=== PATIENT | female | born 1950 | race Caucasian/White ===

== ENCOUNTER → 2016-07-20 | Outpatient (CLI) | payer OTHER ==
[~2016-07-20] MED LIST: ATEN-175 PO; CIPR-255 PO; CYCL10TA6 PO; HYDR-5688 PO; METR-162 PO; ONDA4TAB10 SL; OXYC1TAB3 PO; PRLSR20 PO; TRAM-10 PO
== END | disposition home or self-care (01) ==
LOC: C.MAMM 14:30
PROVIDERS: ATTEND Family Medicine
DX: M81.0 Age-related osteoporosis without current pathological fracture (principal); M85.89 Other specified disorders of bone density and structure, multiple sites

== ENCOUNTER 2016-08-31 12:12 | Emergency (ER) | payer OTHER ==
[~2016-08-31] VITALS: Ht 152.4 cm; Wt 69.3 kg
[~2016-08-31 12:12] MED LIST changes: -CIPR-255 PO; -CYCL10TA6 PO; -HYDR-5688 PO; -METR-162 PO; -ONDA4TAB10 SL
[2016-08-31 12:16] VITALS: TEMP 36.8; Ht 152.4 cm; Wt 69.3 kg
[2016-08-31] MEDS ORDERED: METOCLOPRAMIDE HCL INJ 5 MG/ML 2 ML VIAL IV STA (12:38)
[2016-08-31] MEDS ORDERED: DiphenhydrAMINE HCL 50 MG/ML VIAL IV STA (12:38)
[2016-08-31] MEDS ORDERED: DEXAMETHASONE SOD INJ 10 MG/ML VIAL IV ONE (12:45)
[2016-08-31 13:15] LABS: PARTIAL THROMBOPLASTIN RATIO 1.1; PROTHROMBIN TIME (PATIENT) 10.9 SECONDS (9.0-12.0)
--- NOTE | 2016-08-31 13:17 | DIAGNOSTIC IMAGING REPORT ---
HEAD CT NONCONTRAST CT DOSE: 537.48 mGy.cm HISTORY: Severe headache. TECHNIQUE: Multiaxial CT images of the head were performed without the use of intravenous contrast. Automated exposure control was utilized for this study. Comparison: Head CT 05/09/2008. Findings: The paranasal sinuses and mastoid air cells are clear. The calvarium and skull base are intact. The ventricles and sulci are within normal limits. There is no mass, hematoma, midline shift, or acute infarct. Impression: No acute intracranial abnormality. Electronically signed by: David Prasad M.D. 08/31/2016 1:15 PM Dictated Date/Time: 08/31/2016 1:12 PM
[2016-08-31 13:19] LABS: BASO % 0.3 %; BASO ABS # 0.02 K/uL (0-0.2); COMPLETE YES; EOS % 1.8 %; IG% 0.2 %; LYMPH % 31.4 %; LYMPH ABS # 2.05 K/uL (1.2-3.4); MEAN CELL VOLUME 82.8 fL (80-100); MEAN CORPUSCULAR HEMOGLOBIN 29.8 pg (25-34); MEAN PLATELET VOLUME 8.6 fL (7.4-10.4); NEUT % 58.3 %; PLATELET COUNT 271 K/uL (130-400); RED BLOOD COUNT 5.07 M/uL (4.2-5.4); WHITE BLOOD COUNT 6.53 K/uL (4.8-10.8)
[2016-08-31 13:26] LABS: BUN/CREATININE RATIO 11.8 (10-20); CALCIUM 9.3 mg/dl (8.5-10.1); CREATININE 0.92 mg/dl (0.60-1.20); POTASSIUM 4.4 mmol/L (3.5-5.1)
--- NOTE | 2016-08-31 14:17 | EMERGENCY ROOM VISIT NOTE ---
ED Visit Note First contact with patient: 12:32 I did evaluate and examine this patient myself. I did guide management for the patient. I agree with the PA's assessment as discussed. Please see the PAs dictation for further details. I did independently review the CT scan and blood work. 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 CT scan does not show any evidence of bleed.
--- NOTE | 2016-08-31 16:12 | DIAGNOSTIC IMAGING REPORT ---
Brain MRA HISTORY: Aneurysm eval for aneurysm TECHNIQUE: 3-D [id number] MRA of the brain was performed without contrast. COMPARISON STUDY: None. FINDINGS: Visualized intracranial internal carotid arteries, distal vertebral arteries, and basilar artery are widely patent. There is no significant stenosis, occlusion, or aneurysm seen within the bilateral ACAs, MCAs, or environmental maintenance worker. IMPRESSION: No significant stenosis, occlusion, or aneurysm within the [place] of [place]. Electronically signed by: Bebo Adam M.D. 08/31/2016 4:10 PM Dictated Date/Time: 08/31/2016 4:07 PM
[2016-08-31] MEDS ORDERED: GADAVIST IV PRN (16:45)
--- NOTE | 2016-08-31 16:45 | DIAGNOSTIC IMAGING REPORT ---
NECK MRA HISTORY: Mental status change. eval for aneurysm TECHNIQUE: [id number] and gadolinium-enhanced MRA of the neck was performed both before and after the intravenous administration of contrast. All measurements were calculated based on NASCET criteria. COMPARISON STUDY: None. FINDINGS: The aortic arch and proximal great vessels are widely patent. There is no significant stenosis, occlusion, or dissection identified within the bilateral common carotid, internal carotid, or vertebral arteries. Mild scattered plaque dimension bilaterally. No significant stenotic process. IMPRESSION: No significant stenosis, occlusion, or dissection identified within the carotid or vertebral arteries. Mild scattered plaque formation of both carotid systems. Electronically signed by: Bebo Adam M.D. 08/31/2016 4:43 PM Dictated Date/Time: 08/31/2016 4:42 PM
--- NOTE | 2016-08-31 16:49 | DIAGNOSTIC IMAGING REPORT ---
MRI OF THE BRAIN WITHOUT AND WITH IV CONTRAST CLINICAL HISTORY: Severe headache. History of Shahana Danlos COMPARISON STUDY: Head CT May 09, 2008 and August 31, 2016. TECHNIQUE: Utilizing a 1.5 Adelita magnet and dedicated coil, multiplanar, multiecho imaging of the brain was performed pre and postcontrast administration. IV administration of 7 mL of Gadavist contrast was uneventful. FINDINGS: This exam is mildly compromised by motion artifact. There are no areas restricted diffusion. No acute intracranial hemorrhage, midline shift or mass effect is present. There is no intracranial mass or pathologic enhancement. Mild ventricular dilatation is similar to head CT of May 09, 2008. A few small white matter T2 hyperintense foci suggest minimal small vessel disease. Calvarial signal is maintained. Orbits and sinuses are unremarkable. There is no fluid within the mastoid air cells. IMPRESSION: 1. No acute intracranial findings. 2. No intracranial mass or pathologic enhancement. 3. Mild small vessel disease. Electronically signed by: Jose Tapia M.D. 08/31/2016 4:47 PM Dictated Date/Time: 08/31/2016 4:43 PM
[2016-08-31 17:04] VITALS: BP 152/87; PULSE 117; O2SAT 91
--- NOTE | 2016-08-31 17:05 | EMERGENCY ROOM VISIT NOTE ---
History First contact with patient: 12:32 Chief Complaint: HEAD PAIN Stated Complaint: HEAD PAIN History of Present Illness The patient is a 65 year old female who presents to the Emergency Room with complaints of severe headache to the right orbital region described as throbbing , ranging in severity 8 out of 10 since 9:30 this morning. Patient has Ehler Danlos syndrome and follows with vascular Dr. Jhon Barr. Patient has had multiple aneurysms in the past that had ruptured. No known brain aneurysms. Patient was sent in by the family care doctor. Nothing makes the pain better or worse. Patient denies numbness, tingling, localized weakness, fever, chills, cough, congestion, vision problems, chest pain, dyspnea, abdominal pain, diaphoresis. She is tolerated by mouth fluids and food. No history of migraines. Review of Systems See HPI for pertinent positives & negatives. A total of 10 systems reviewed and were otherwise negative. 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 (3) Hypertension Nos (4) Rupture of kidney (5) Rupture of ovary (6) Splenic Artery Aneurysm Family History Cancer Diabetes mellitus Hypertension Social History Smoking Status: Never Smoker Alcohol Use: none Drug Use: none Marital Status: Housing Status: lives with family Occupation Status: employed Current/Historical Medications Scheduled Atenolol (Tenormin), 100 MG PO HS Scheduled PRN Tramadol (Ultram), 50 MG PO TID PRN for Pain Allergies Coded Allergies: Sodium Benzoate (Verified Allergy, Unknown, unk, 08/31/16) Physical Exam Vital Signs Date Time Temp Pulse Resp B/P Pulse Ox O2 Delivery O2 Flow Rate FiO2 08/31/16 15:30 63 16 132/86 98 Room Air 08/31/16 13:16 66 08/31/16 13:15 68 17 117/71 97 Room Air 08/31/16 12:16 36.8 74 18 126/83 96 Room Air Pain Rating (0-10): 8.0 Physical Exam VITALS: Vitals are noted on the nurse's note and reviewed by myself. Vital signs stable. GENERAL: Pleasant female, in no acute distress, nondiaphoretic, well-developed well-nourished. SKIN: The skin was without rashes, erythema, edema, or bruising. There is no tenting of the skin. Capillary reflex less than 2 seconds. HEAD: Normocephalic atraumatic. EARS: External auditory canals clear, tympanic membranes pearly rodriguez without erythema or effusion bilaterally. EYES: Pupils equal round and reactive to light and accommodation. Conjunctivae without injection, sclerae without icterus. Extraocular movements intact. NOSE: Patent, turbinates without inflammation or discharge. No sinus tenderness. MOUTH: Mucous membranes moist. Pharynx without erythema or exudate. Uvula midline. Airway patent. Tongue does not deviate. NECK: Supple without nuchal rigidity. No lymphadenopathy. No thyromegaly. Cervical spine is nontender. No JVD. HEART: Regular rate and rhythm without murmurs gallops or rubs. LUNGS: Clear to auscultation bilaterally without wheezes, rales or rhonchi. No dullness to percussion. No retractions or accessory muscle use. ABDOMEN: Positive bowel sounds x 4. Normal tympanic percussion. Soft, nontender, without masses or organomegaly. Benitez sign negative. No guarding or rebound tenderness. MUSCULOSKELETAL: No muscle atrophy, erythema, or edema noted. NEURO: Patient was alert and oriented to person place and time. Normal sensation to light and sharp touch. No focal neurological deficits. Cranial nerves II through XII grossly intact. No pronator drift. Cerebellar exam intact. Medical Decision & Procedures Laboratory Results 08/31/16 12:52 Red Blood Count 5.07, Mean Corpuscular Volume 82.8, Mean Corpuscular Hemoglobin 29.8, Mean Corpuscular Hemoglobin Concent 36.0, Mean Platelet Volume 8.6, Neutrophils (%) (Auto) 58.3, Lymphocytes (%) (Auto) 31.4, Monocytes (%) (Auto) 8.0, Eosinophils (%) (Auto) 1.8, Basophils (%) (Auto) 0.3, Neutrophils # (Auto) 3.81, Lymphocytes # (Auto) 2.05, Monocytes # (Auto) 0.52, Eosinophils # (Auto) 0.12, Basophils # (Auto) 0.02 08/31/16 12:52 Test 08/31/16 12:52 White Blood Count 6.53 K/uL (4.8-10.8) Red Blood Count 5.07 M/uL (4.2-5.4) Hemoglobin 15.1 g/dL (12.0-16.0) Hematocrit 42.0 % (37-47) Mean Corpuscular Volume 82.8 fL (80-100) Mean Corpuscular Hemoglobin 29.8 pg (25-34) Mean Corpuscular Hemoglobin Concent 36.0 g/dl (32-36) Platelet Count 271 K/uL (130-400) Mean Platelet Volume 8.6 fL (7.4-10.4) Neutrophils (%) (Auto) 58.3 % Lymphocytes (%) (Auto) 31.4 % Monocytes (%) (Auto) 8.0 % Eosinophils (%) (Auto) 1.8 % Basophils (%) (Auto) 0.3 % Neutrophils # (Auto) 3.81 K/uL (1.4-6.5) Lymphocytes # (Auto) 2.05 K/uL (1.2-3.4) Monocytes # (Auto) 0.52 K/uL (0.11-0.59) Eosinophils # (Auto) 0.12 K/uL (0-0.5) Basophils # (Auto) 0.02 K/uL (0-0.2) RDW Standard Deviation 39.1 fL (36.4-46.3) RDW Coefficient of Variation 13.0 % (11.5-14.5) Immature Granulocyte % (Auto) 0.2 % Immature Granulocyte # (Auto) 0.01 K/uL (0.00-0.02) Prothrombin Time 10.9 SECONDS (9.0-12.0) Prothromb Time International Ratio 1.0 (0.9-1.1) Activated Partial Thromboplast Time 29.3 SECONDS (21.0-31.0) Partial Thromboplastin Ratio 1.1 Anion Gap 6.0 mmol/L (3-11) Est Creatinine Clear Calc Drug Dose 53.7 ml/min Estimated GFR () 76.3 Estimated GFR (Non- 65.8 BUN/Creatinine Ratio 11.8 (10-20) Calcium Level 9.3 mg/dl (8.5-10.1) ED Course Prior records/ancillary studies reviewed. Triage Nursing notes reviewed. The patient's history was concerning for headache. Differential diagnosis: Etiologies such as migraine headache, meningitis, sinusitis, CO exposure, ICH, SAH, infection, tumor, headache, sinus thrombosis, arterial dissection, as well as others were entertained. Physical examination findings: As above. Non-focal. ER treatment provided: Reglan, Benadryl, IV fluids On reassessment the patient felt better. Diagnostics interpreted by me: The labs revealed no worrisome leukocytosis or electrolyte abnormality Imaging studies: MRI OF THE BRAIN WITHOUT AND WITH IV CONTRAST CLINICAL HISTORY: Severe headache. History of Shahana Danlos COMPARISON STUDY: Head CT May 09, 2008 and August 31, 2016. TECHNIQUE: Utilizing a 1.5 Adelita magnet and dedicated coil, multiplanar, multiecho imaging of the brain was performed pre and postcontrast administration. IV administration of 7 mL of Gadavist contrast was uneventful. FINDINGS: This exam is mildly compromised by motion artifact. There are no areas restricted diffusion. No acute intracranial hemorrhage, midline shift or mass effect is present. There is no intracranial mass or pathologic enhancement. Mild ventricular dilatation is similar to head CT of May 09, 2008. A few small white matter T2 hyperintense foci suggest minimal small vessel disease. Calvarial signal is maintained. Orbits and sinuses are unremarkable. There is no fluid within the mastoid air cells. IMPRESSION: 1. No acute intracranial findings. 2. No intracranial mass or pathologic enhancement. 3. Mild small vessel disease. Electronically signed by: Jose Tapia M.D. 08/31/2016 4:[address] CT DOSE: 537.48 mGy.cm HISTORY: Severe headache. TECHNIQUE: Multiaxial CT images of the head were performed without the use of intravenous contrast. Automated exposure control was utilized for this study. Comparison: Head CT 05/09/2008. Findings: The paranasal sinuses and mastoid air cells are clear. The calvarium and skull base are intact. The ventricles and sulci are within normal limits. There is no mass, hematoma, midline shift, or acute infarct. Impression: No acute intracranial abnormality. Electronically signed by: David Prasad M.D. This appears to be consistent with headache that could be allergy related. Patient states she's been suffering from allergies past few days. Patient was offered a lumbar puncture for rule out intracranial bleed and adamantly declined. She is requesting to leave. I felt this is reasonable. She understands the risks involved such as intracranial bleed, infection and/or . Patient was neurovascularly and neurologically intact. She is well- appearing. Unremarkable workup as above. She is advised to follow-up with her family care doctor in a few days or here in the ER sooner for headache, fevers, confusion, worsening signs or symptoms or as needed. By the evaluation outlined above emergent etiologies such as meningitis, sinusitis, CO exposure, ICH, SAH, infection, temporal arteritis, tumor, sinus thrombosis, arterial dissection, as well as others were deemed relatively unlikely. The pt informed about the findings as listed above. All questions were answered and pleased with the treatment. Return instructions were outlined and the patient was discharged in stable condition. Referral: The patient was referred back to their primary care physician for follow-up in 2 to 3 days for a recheck of the current condition. Case reviewed with my attending Medical Decision as above Impression Primary Impression: Headache Departure Information Dispostion Home / Self-Care Condition GOOD Referrals Nora Louis M.D. (PCP) Patient Instructions My [facility] [place] [employer] Additional Instructions DO NOT drive, drink alcohol, operate machinery, or perform dangerous activities today. You were given medications in the ER that can affect your ability to safely function or operate a vehicle. Rest today in a quiet, peaceful, dark environment and get a full 8-10 hrs of sleep tonight. Avoid loud noises, smoke/smoking, alcohol, bright lights, stress, or physical exertion today to minimize the chance the headache may return. Continue current medications. Acetaminophen(Tylenol) may be used for fever or pain. Use 1000mg every six hours as needed. Avoid using more than 3000mg in a 24 hour period. Return to the ER for passing out, worsening headache, vision problems, neck stiffness/pain, fevers, vomiting, worsening of your condition, or as needed. Follow up with your primary physician and/or a neurologist in 2-3 days for a recheck of your current condition. Problem Qualifiers Primary Impression: Headache Headache type: unspecified Headache chronicity pattern: acute headache Intractability: not intractable Qualified Codes: R51 - Headache
== END 2016-08-31 17:06 | disposition home or self-care (01) ==
LOC: C.EDB 12:13 → C.EDC 17:06
DX: R51 Headache (principal); Q79.6 Ehlers-Danlos syndromes; I10 Essential (primary) hypertension; Z80.9 Family history of malignant neoplasm, unspecified; Z83.3 Family history of diabetes mellitus; Z82.49 Family history of ischemic heart disease and other diseases of the circulatory system; Z79.899 Other long term (current) drug therapy; I65.23 Occlusion and stenosis of bilateral carotid arteries

== ENCOUNTER 2016-09-07 11:18 | Emergency (ER) | payer OTHER ==
[~2016-09-07] VITALS: Ht 152.4 cm; Wt 68.2 kg
[~2016-09-07 11:18] MED LIST changes: -OXYC1TAB3 PO; -PRLSR20 PO
[2016-09-07 11:27] VITALS: TEMP 36.8; Ht 152.4 cm; Wt 68.2 kg
[2016-09-07] MEDS ORDERED: SODIUM CHLORIDE 0.9% 1000ML 1,000 ML IV STA (12:08)
[2016-09-07] MEDS ORDERED: HYDROmorphone INJ 1 MG/ML SYR IV STA (12:08)
--- NOTE | 2016-09-07 12:12 | EMERGENCY ROOM VISIT NOTE ---
History Report prepared by Miguel: Tova Johnson Under the Supervision of: Dr. Idris Rowe M.D. First contact with patient: 11:59 Chief Complaint: HIP PAIN Stated Complaint: ABDOMINAL PAIN History of Present Illness The patient is a 65 year old female who presents to the Emergency Room with complaints of persistent right hip pain that began three days ago. She currently rates her discomfort as a 10/10 in severity. The patient states that she was recently evaluated in the emergency department for a head pain, noting that she had an MRI. The patient states that she was discharged and then developed the right hip pain. She notes a history of a ruptured right kidney, noting that she had a right nephrectomy. The patient denies any history of an appendectomy. She describes her pain as a spasm and sharp pain. The patient states that she takes Tramadol daily, but denies any relief of her symptoms. She states that her pain today feels similar to a kidney stone. The patient notes a history of an abdominal aneurysm. Source of History: patient Onset: three days ago Position: other (right hip) Symptom Intensity: 10/10 Quality: sharp, other (spasm) Timing: other (persistent) Review of Systems See HPI for pertinent positives & negatives. A total of 10 systems reviewed and were otherwise negative. 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 (3) Hypertension Nos (4) Rupture of kidney (5) Rupture of ovary (6) Splenic Artery Aneurysm Family History Cancer Diabetes mellitus Hypertension Social History Smoking Status: Never Smoker Alcohol Use: none Drug Use: none Marital Status: Housing Status: lives with family Occupation Status: employed Current/Historical Medications Scheduled Atenolol (Tenormin), 100 MG PO HS Scheduled PRN Cyclobenzaprine Hcl (Flexeril), 10 MG PO TID PRN for Muscle Spasms Oxycodone Immediate Rel Tab (Roxicodone Ir), 1-2 TAB PO Q4H PRN for Severe Pain Tramadol (Ultram), 50 MG PO TID PRN for Pain Allergies Coded Allergies: Sodium Benzoate (Verified Allergy, Unknown, unk, 08/31/16) Physical Exam Vital Signs Date Time Temp Pulse Resp B/P Pulse Ox O2 Delivery O2 Flow Rate FiO2 09/07/16 15:07 73 18 133/78 100 09/07/16 13:05 73 18 128/72 96 Room Air 09/07/16 11:27 36.8 85 20 138/81 96 Room Air Physical Exam GENERAL: Patient is uncomfortable appearing and in moderate distress. HEENT: No acute trauma, normocephalic atraumatic, mucous membranes moist, no nasal congestion, no scleral icterus. NECK: No stridor, no adenopathy, no meningismus, trachea is midline. LUNGS: No dyspnea. Clear to auscultation and equal bilaterally. No wheeze, no rhonchi. HEART: Regular rate and rhythm. No murmurs, rubs, gallops appreciated. ABDOMEN: Very tender over right lower quadrant. Soft, bowel sounds positive, no masses appreciated, no peritonitis. BACK: No midline tenderness, no CVA tenderness EXTREMITIES: Normal motion all extremities, no cyanosis, no edema. NEUROLOGIC: Alert and oriented, no acute motor or sensory deficits, no focal weakness, cranial nerves grossly intact. SKIN: No rash, no jaundice, no diaphoresis. Medical Decision & Procedures ER Provider Diagnostic Interpretation: Radiology results and stated below per my review and radiologist interpretation: CT SCAN OF THE ABDOMEN AND PELVIS WITH IV CONTRAST CLINICAL HISTORY: Right lower quadrant abdominal pain COMPARISON STUDY: Abdominal CT dated 04/22/2016 and 02/25/2015. TECHNIQUE: Following the IV administration of 50 cc of Optiray 320, CT scan of the abdomen and pelvis is performed from the lung bases to the proximal femora. Images are reviewed in the axial, sagittal, and coronal planes. IV contrast was administered without complication. Low dose was used due to solitary kidney. Automated dose control exposure was utilized. CT DOSE: 366.44 mGy.cm FINDINGS: Lung bases: The heart is enlarged and there is trace pericardial effusion. No airspace consolidation or pleural effusion is seen. There is a small to moderate hiatal hernia. Liver: The contrast-enhanced liver is normal in size, contour, and attenuation. There is mild to moderate central intrahepatic biliary ductal dilatation, similar to previous. The hepatic veins and portal veins are patent. Calcifications are noted in the right hepatic lobe. Gallbladder: Surgically absent noting clips in the gallbladder fossa. Spleen: Normal in size and attenuation. There are at least 2 peripherally calcified splenic artery aneurysms measuring up to 1.6 cm. These are similar in appearance to prior studies. Pancreas: Moderately atrophic. Adrenal glands: Unremarkable. Kidneys: The right kidney is surgically absent. The contrast-enhanced left kidney is normal in size and without hydronephrosis. Parapelvic cysts are noted. The left kidney enhances homogeneously. 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 A 1.4 cm aneurysm is again seen at the renal hilum. This is unchanged from previous. Abdominal vasculature: The abdominal aorta is normal in course and caliber noting moderate atherosclerotic calcification. 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 Bowel: There is no bowel obstruction. There is mild colonic diverticulosis without CT evidence of acute diverticulitis. The appendix is well-visualized and normal. Peritoneum: There is no intraperitoneal free air or abdominal ascites. There is a fat-containing umbilical hernia. Lymphadenopathy: None. Pelvic viscera: The bladder, uterus, and adnexa are normal as imaged. Trace free fluid is seen in the cul-de-sac. Skeletal structures: The skeletal structures are osteopenic. There is mild/moderate lumbosacral spondylosis. No lytic or blastic lesions are seen. IMPRESSION: 1. There are no acute infectious or inflammatory findings in the abdomen or pelvis. 2. There is trace free fluid in the cul-de-sac. 3. Aneurysms of the left renal, celiac, superior mesenteric, and splenic arteries are unchanged dating back to 02/25/2015. 4. Status post right nephrectomy and cholecystectomy. 5. Cardiomegaly. An hiatal hernia. 6. Mild colonic diverticulosis without CT evidence of acute diverticulitis. 7. Additional findings as above. Electronically signed by: Kevin Solomon M.D. 09/07/2016 1:08 PM Dictated Date/Time: 09/07/2016 1:02 PM The status of this report is Signed. Draft = Not yet reviewed or approved by Radiologist. Signed = Reviewed and approved by Radiologist. Laboratory Results 09/07/16 11:40 Red Blood Count 5.00, Mean Corpuscular Volume 84.6, Mean Corpuscular Hemoglobin 29.6, Mean Corpuscular Hemoglobin Concent 35.0, Mean Platelet Volume 8.8, Neutrophils (%) (Auto) 49.7, Lymphocytes (%) (Auto) 39.0, Monocytes (%) (Auto) 7.9, Eosinophils (%) (Auto) 2.9, Basophils (%) (Auto) 0.5, Neutrophils # (Auto) 2.08, Lymphocytes # (Auto) 1.63, Monocytes # (Auto) 0.33, Eosinophils # (Auto) 0.12, Basophils # (Auto) 0.02 09/07/16 11:40 Test 09/07/16 11:30 09/07/16 11:40 Urine Color YELLOW Urine Appearance CLEAR (CLEAR) Urine pH 8.0 (4.5-7.5) Urine Specific [place] 1.004 (1.000-1.030) Urine Protein NEG (NEG) Urine Glucose (UA) NEG (NEG) Urine Ketones NEG (NEG) Urine Occult Blood NEG (NEG) Urine Nitrite NEG (NEG) Urine Bilirubin NEG (NEG) Urine Urobilinogen NEG (NEG) Urine Leukocyte Esterase NEG (NEG) Urine WBC (Auto) 0 /hpf (0-5) Urine RBC (Auto) 0-4 /hpf (0-4) Urine Hyaline Casts (Auto) 0 /lpf (0-5) Urine Epithelial Cells (Auto) 5-10 /lpf (0-5) Urine Bacteria (Auto) NEG (NEG) White Blood Count 4.18 K/uL (4.8-10.8) Red Blood Count 5.00 M/uL (4.2-5.4) Hemoglobin 14.8 g/dL (12.0-16.0) Hematocrit 42.3 % (37-47) Mean Corpuscular Volume 84.6 fL (80-100) Mean Corpuscular Hemoglobin 29.6 pg (25-34) Mean Corpuscular Hemoglobin Concent 35.0 g/dl (32-36) Platelet Count 248 K/uL (130-400) Mean Platelet Volume 8.8 fL (7.4-10.4) Neutrophils (%) (Auto) 49.7 % Lymphocytes (%) (Auto) 39.0 % Monocytes (%) (Auto) 7.9 % Eosinophils (%) (Auto) 2.9 % Basophils (%) (Auto) 0.5 % Neutrophils # (Auto) 2.08 K/uL (1.4-6.5) Lymphocytes # (Auto) 1.63 K/uL (1.2-3.4) Monocytes # (Auto) 0.33 K/uL (0.11-0.59) Eosinophils # (Auto) 0.12 K/uL (0-0.5) Basophils # (Auto) 0.02 K/uL (0-0.2) RDW Standard Deviation 40.3 fL (36.4-46.3) RDW Coefficient of Variation 13.2 % (11.5-14.5) Immature Granulocyte % (Auto) 0.0 % Immature Granulocyte # (Auto) 0.00 K/uL (0.00-0.02) Anion Gap 7.0 mmol/L (3-11) Est Creatinine Clear Calc Drug Dose 51.0 ml/min Estimated GFR () 72.4 Estimated GFR (Non- 62.5 BUN/Creatinine Ratio 10.7 (10-20) Calcium Level 9.5 mg/dl (8.5-10.1) Total Bilirubin 0.7 mg/dl (0.2-1) Direct Bilirubin 0.1 mg/dl (0-0.2) Aspartate Amino Transf (AST/SGOT) 29 U/L (15-37) Alanine Aminotransferase (ALT/SGPT) 36 U/L (12-78) Alkaline Phosphatase 91 U/L (45-117) Total Protein 7.6 gm/dl (6.4-8.2) Albumin 3.9 gm/dl (3.4-5.0) Lipase 149 U/L (73-393) Laboratory results as reviewed by me. Medications Administered Medications (Trade) Dose Ordered Sig/Delmar Route Start Time Stop Time Status Last Admin Dose Admin Sodium Chloride (Nss 1000ml) 1,000 ml @ 999 mls/hr Q1H1M STAT IV 09/07/16 12:08 09/07/16 13:08 DC 09/07/16 12:18 999 MLS/HR Hydromorphone HCl (Dilaudid Inj) 1 mg NOW STAT IV 09/07/16 12:08 09/07/16 12:10 DC 09/07/16 12:17 1 MG Cyclobenzaprine HCl (Flexeril Tab) 10 mg NOW STAT PO 09/07/16 14:44 09/07/16 14:45 DC 09/07/16 15:02 10 MG ED Course 1201: The patient was evaluated in room C4. A complete history and physical exam was performed. 1208: Ordered Dilaudid Inj 1 mg IV, Sodium Chloride 1000 ml @ 999 mls/hr IV. 1318: I reevaluated the patient and she is still having pain. She refuses to sit down and refuses any more pain medication. She states that she wants to know "when something ruptures." The patient demands that her case is discussed with her vascular surgeon at [facility]. The patient is able to walk around the room without weakness. [address] Favio Ferreira, Vascular Surgery- [facility]. 1338: I reevaluated the patient and she is still out of bed walking around room. 1354: We are unable to contact the patients specialist. 1413: I discussed the patients case with one of Favio Ferreira, Vascular Surgery- [facility] partners. He is going to get in touch with Favio Ferreira. 1420: I discussed the patients case with Favio Ferreira, Vascular Surgery- [facility]. He states that there is nothing more to do for the patient. 1436: I reevaluated the patient and she is still having pain, but would not like pain medications. She requested a muscle relaxer. The patient asked for physical therapy to come see her and she is going to follow up with her PCP. I discussed the exam findings and treatment plan with her and she verbalized complete understanding and agreement. The patient is ready to go home. 1444: Ordered Flexeril Tab 10 mg PO. Medical Decision Differential: Appendicitis, , MSK, Diverticulitis, UTI, Renal Colic, Bowel Obstruction, Aortic Pathology, amongst other pathologies entertained. 65 yr old female arrives with RLQ abdominal pain in to groin. Exam difficult to truly get initially given how upset patient is. Calmed and feeling better with pain meds. She is absolutely convinced she is having intraabdominal bleeding. Pulses intact in legs and neuro normal. No peritonitis nor surgical abdomen. CT done which is unremarkable and does not show any new changes from previous scans. Labs unremarkable. Patient requested I call her surgeon at [facility] and they have noted no further studies to add. Patient stable though still having pain. Refuses further IV pain meds and requesting muscle relaxer. Refuses benzo. Given rx for flexeril and oxy ir. Discussed symptoms to monitor for. As much as patient saying she is unable to ambulate due to pain she has been walking around the room without very much difficulty throughout ED stay. Consults Time Called: 1320 Consulting Physician: Dr. favio Ferreira, Vascular Surgery- [facility] Returned Call: 1420 I discussed the patients case with Favio Ferreira, Vascular Surgery- [facility]. He states that there is nothing more to do for the patient. Impression Primary Impression: Right groin pain Scribe Attestation The scribe's documentation has been prepared under my direction and personally reviewed by me in its entirety. I confirm that the note above accurately reflects all work, treatment, procedures, and medical decision making performed by me. Departure Information Dispostion Home / Self-Care Prescriptions Cyclobenzaprine Hcl (FLEXERIL) 10 Mg Tab 10 MG PO TID Y for Muscle Spasms, #20 TAB Prov: Idris Rowe M.D. 09/07/16 Oxycodone Immediate Rel Tab (ROXICODONE IR) 5 Mg Tab 1-2 TAB PO Q4H Y for Severe Pain, #20 TAB Prov: Idris Rowe M.D. 09/07/16 Referrals Nora Louis M.D. (PCP) Forms HOME CARE DOCUMENTATION FORM, IMPORTANT VISIT INFORMATION Patient Instructions Abdominal Pain - [facility], My [facility] Additional Instructions You have received a narcotic pain medication prescription. These medications may cause drowsiness and should not be used with other sedative medications. Do not drive, drink alcohol, perform dangerous activities, nor make important decisions after taking these medications. intermodal dispatcher use or inappropriate use may lead to addiction.
[2016-09-07 12:16] LABS: BASO % 0.5 %; BASO ABS # 0.02 K/uL (0-0.2); COMPLETE YES; EOS % 2.9 %; HEMATOCRIT 42.3 % (37-47); LYMPH ABS # 1.63 K/uL (1.2-3.4); MEAN CELL VOLUME 84.6 fL (80-100); MEAN CORPUSCULAR HEMOGLOBIN 29.6 pg (25-34); MEAN PLATELET VOLUME 8.8 fL (7.4-10.4); MONO % 7.9 %; NEUT % 49.7 %; PLATELET COUNT 248 K/uL (130-400); WHITE BLOOD COUNT 4.18 K/uL (4.8-10.8)
[2016-09-07 12:25] LABS: BUN/CREATININE RATIO 10.7 (10-20); CALCIUM 9.5 mg/dl (8.5-10.1); CREATININE 0.96 mg/dl (0.60-1.20); POTASSIUM 4.5 mmol/L (3.5-5.1)
[2016-09-07 12:32] LABS: URINE APPEARANCE CLEAR (CLEAR); URINE BILIRUBIN NEG (NEG); URINE COLOR YELLOW; URINE NITRITE NEG (NEG); URINE SPECIFIC GRAVITY 1.004 (1.000-1.030); UROBILINOGEN NEG (NEG); ZZUR CULT IF INDIC CLEAN CATCH NO
[2016-09-07 12:45] LABS: MANUAL MICROSCOPIC REQUIRED? NO; REVIEW REQ? NO
[2016-09-07] MEDS ORDERED: OPTIRAY 320 IV PRN (13:00)
--- NOTE | 2016-09-07 13:10 | DIAGNOSTIC IMAGING REPORT ---
CT SCAN OF THE ABDOMEN AND PELVIS WITH IV CONTRAST CLINICAL HISTORY: Right lower quadrant abdominal pain COMPARISON STUDY: Abdominal CT dated 04/22/2016 and 02/25/2015. TECHNIQUE: Following the IV administration of 50 cc of Optiray 320, CT scan of the abdomen and pelvis is performed from the lung bases to the proximal femora. Images are reviewed in the axial, sagittal, and coronal planes. IV contrast was administered without complication. Low dose was used due to solitary kidney. Automated dose control exposure was utilized. CT DOSE: 366.44 mGy.cm FINDINGS: Lung bases: The heart is enlarged and there is trace pericardial effusion. No airspace consolidation or pleural effusion is seen. There is a small to moderate hiatal hernia. Liver: The contrast-enhanced liver is normal in size, contour, and attenuation. There is mild to moderate central intrahepatic biliary ductal dilatation, similar to previous. The hepatic veins and portal veins are patent. Calcifications are noted in the right hepatic lobe. Gallbladder: Surgically absent noting clips in the gallbladder fossa. Spleen: Normal in size and attenuation. There are at least 2 peripherally calcified splenic artery aneurysms measuring up to 1.6 cm. These are similar in appearance to prior studies. Pancreas: Moderately atrophic. Adrenal glands: Unremarkable. Kidneys: The right kidney is surgically absent. The contrast-enhanced left kidney is normal in size and without hydronephrosis. Parapelvic cysts are noted. The left kidney enhances homogeneously. 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 A 1.4 cm aneurysm is again seen at the renal hilum. This is unchanged from previous. Abdominal vasculature: The abdominal aorta is normal in course and caliber noting moderate atherosclerotic calcification. 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 Bowel: There is no bowel obstruction. There is mild colonic diverticulosis without CT evidence of acute diverticulitis. The appendix is well-visualized and normal. Peritoneum: There is no intraperitoneal free air or abdominal ascites. There is a fat-containing umbilical hernia. Lymphadenopathy: None. Pelvic viscera: The bladder, uterus, and adnexa are normal as imaged. Trace free fluid is seen in the cul-de-sac. Skeletal structures: The skeletal structures are osteopenic. There is mild/moderate lumbosacral spondylosis. No lytic or blastic lesions are seen. IMPRESSION: 1. There are no acute infectious or inflammatory findings in the abdomen or pelvis. 2. There is trace free fluid in the cul-de-sac. 3. Aneurysms of the left renal, celiac, superior mesenteric, and splenic arteries are unchanged dating back to 02/25/2015. 4. Status post right nephrectomy and cholecystectomy. 5. Cardiomegaly. An hiatal hernia. 6. Mild colonic diverticulosis without CT evidence of acute diverticulitis. 7. Additional findings as above. Electronically signed by: Kevin Solomon M.D. 09/07/2016 1:08 PM Dictated Date/Time: 09/07/2016 1:02 PM
[2016-09-07] MEDS ORDERED: CYCLOBENZAPRINE HCL 5 MG TAB PO STA (14:44)
[2016-09-07] MEDS ORDERED: CYCL10TA6 PO (14:47)
[2016-09-07] MEDS ORDERED: OXYC1TAB3 PO (14:47)
[2016-09-07] MEDS ORDERED: CYCLOBENZAPRINE HCL 10 MG TAB ONE (15:04)
[2016-09-07 15:07] VITALS: BP 133/78; PULSE 73; O2SAT 100
== END 2016-09-07 15:08 | disposition home or self-care (01) ==
LOC: EDBD 11:18 → C.EDC 11:19
DX: R10.31 Right lower quadrant pain (principal); I10 Essential (primary) hypertension; Q79.6 Ehlers-Danlos syndromes; I71.4 Abdominal aortic aneurysm, without rupture; Z80.9 Family history of malignant neoplasm, unspecified; Z83.3 Family history of diabetes mellitus; Z82.49 Family history of ischemic heart disease and other diseases of the circulatory system; Z79.899 Other long term (current) drug therapy

== ENCOUNTER 2016-11-10 16:15 | Emergency (ER) | payer OTHER ==
[~2016-11-10] VITALS: Ht 152.4 cm; Wt 69.8 kg
[~2016-11-10 16:15] MED LIST changes: +OXYC1TAB3 PO
[2016-11-10 16:21] VITALS: BP 127/81; PULSE 87; TEMP 36.5; O2SAT 96; Ht 152.4 cm; Wt 69.8 kg
--- NOTE | 2016-11-10 16:47 | DIAGNOSTIC IMAGING REPORT ---
RIGHT FOOT MIN 3 VIEWS ROUTINE CLINICAL HISTORY: R lat foot pain/prox 5th MT Right pain COMPARISON: None. DISCUSSION: Moderate degenerative change first metatarsophalangeal joint. Small heel spur. Minimal ossification Achilles tendon insertion. Subtalar joint appears to be intact. No acute bony abnormality is appreciated. There is no evidence for soft tissue swelling. IMPRESSION: Moderate degenerative change. No acute process. Electronically signed by: Bebo Adam M.D. 11/10/2016 4:46 PM Dictated Date/Time: 11/10/2016 4:45 PM
--- NOTE | 2016-11-10 17:10 | EMERGENCY ROOM VISIT NOTE ---
ED Visit Note First contact with patient: 16:25 I did evaluate and examine this patient myself. I did guide management for the patient. I agree with the APC's assessment as discussed. Please see the APC's dictation for further details. I did independently review the x-rays. There is no evidence of acute fracture. The patient was discharged home with a walking boot. She will follow up with [facility].
--- NOTE | 2016-11-10 20:27 | EMERGENCY ROOM VISIT NOTE ---
History First contact with patient: 16:25 Chief Complaint: FOOT PAIN Stated Complaint: LUMP, CRAMPS, PAIN, RT FOOT History of Present Illness The patient is a 66 year old female who presents to the Emergency Room with complaints of right lateral foot pain. The patient reports that she has had discomfort in the foot for the past week. She denies any known injury to the foot. She does walk extensively with her dog, but denies any sudden onset of pain while working. She also reports a history of Shahana-Danlos syndrome, and is wondering whether her symptoms could be secondary to a neuroma or other soft tissue injury. She was seen by her PCP at the [facility] , and referred here for an x-ray. The patient rates her discomfort a 4 out of 10 with weightbearing. She denies any prior history of right foot injuries or fractures. 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 (3) Hypertension Nos (4) Rupture of kidney (5) Rupture of ovary (6) Splenic Artery Aneurysm Family History Cancer Diabetes mellitus Hypertension Social History Smoking Status: Never Smoker Alcohol Use: none Drug Use: none Marital Status: Housing Status: lives with family Occupation Status: employed Current/Historical Medications Scheduled Atenolol (Tenormin), 100 MG PO HS Scheduled PRN Tramadol (Ultram), 50 MG PO TID PRN for Pain Allergies Coded Allergies: Sodium Benzoate (Verified Allergy, Unknown, unk, 11/10/16) Physical Exam Vital Signs Date Time Temp Pulse Resp B/P (MAP) Pulse Ox O2 Delivery O2 Flow Rate FiO2 11/10/16 16:21 36.5 87 20 127/81 96 Room Air Pain Rating (0-10): 3.0 Physical Exam CONSTITUTIONAL: Healthy and well nourished. Alert and oriented X 3 with positive affect. She does not appear in any acute distress. HEENT: Normocephalic, atraumatic. Pupils equal, round and reactive. NECK: Full active range of motion without discomfort. MUSCULOSKELETAL: Examination of the right foot shows minimal lateral midfoot edema without ecchymosis, erythema or palpable masses. She has general tenderness to palpation over the proximal fifth metatarsal region. The pain is not worsened with flexion or extension of the toes. No focal tenderness to the dorsal midfoot, calcaneus or Achilles tendon. Pedal pulses are intact. INTEGUMENTARY: No rash or other significant dermatologic conditions noted. NEUROLOGIC: Right foot and toes are sensory intact. Medical Decision & Procedures ER Provider Diagnostic Interpretation: My interpretation of right foot x-rays does not show any acute fractures or subluxations. Radiologist report is as follows: RIGHT FOOT MIN 3 VIEWS ROUTINE CLINICAL HISTORY: R lat foot pain/prox 5th MT Right pain COMPARISON: None. DISCUSSION: Moderate degenerative change first metatarsophalangeal joint. Small heel spur. Minimal ossification Achilles tendon insertion. Subtalar joint appears to be intact. No acute bony abnormality is appreciated. There is no evidence for soft tissue swelling. IMPRESSION: Moderate degenerative change. No acute process. ED Course Patient history and physical exam were performed. Nurse's notes were reviewed. Vital signs were also reviewed and normal. The patient refused any analgesics while in the emergency department. Shows of the right foot were normal. The patient reports that she is on her feet all of the time. She refused crutches or a walker. She wanted to know if it was something that I can put on her foot that she can walk. A short fracture boot was applied, and the patient was able to ambulate without difficulty. I did encourage the patient to follow-up with [facility] for further reevaluation. She was encouraged to intermittently apply ice to the foot. Ibuprofen or Tylenol as needed for pain. Patient was happy with plan of care, voiced understanding of all discharge instructions, and rated her pain a 3 out of 10 at the time of discharge. Medical Decision Impression Primary Impression: Right foot pain Departure Information Dispostion Home / Self-Care Condition GOOD Referrals Gianfranco Vasquez MD Forms HOME CARE DOCUMENTATION FORM, IMPORTANT VISIT INFORMATION Patient Instructions My [facility] [employer] Additional Instructions Intermittently apply ice to the foot. Wear fracture boot as needed when up and about. Ibuprofen or Tylenol as needed for pain. Suggest follow-up with [facility] for further reevaluation and management - call for an appointment.
== END 2016-11-10 17:24 | disposition home or self-care (01) ==
LOC: C.EDB 16:17 → C.EDD 17:24
DX: M79.671 Pain in right foot (principal); I10 Essential (primary) hypertension; Q79.6 Ehlers-Danlos syndromes; Z83.3 Family history of diabetes mellitus; Z82.49 Family history of ischemic heart disease and other diseases of the circulatory system

== ENCOUNTER 2016-11-20 03:44 | Emergency (ER) | payer OTHER ==
[~2016-11-20] VITALS: Ht 152.4 cm; Wt 69.9 kg
[~2016-11-20 03:44] MED LIST changes: +LORAZEPAM 2 MG/ML 1 ML VIAL IV STA; -OXYC1TAB3 PO
[2016-11-20] MEDS ORDERED: SODIUM CHLORIDE 0.9% 1000ML 1,000 ML IV ONE (03:45)
[2016-11-20] MEDS ORDERED: OPTIRAY 320 IV PRN (04:00)
[2016-11-20 04:07] VITALS: TEMP 36.8; Ht 152.4 cm; Wt 69.9 kg
[2016-11-20 04:13] LABS: BASO % 0.4 %; BASO ABS # 0.03 K/uL (0-0.2); COMPLETE YES; EOS % 1.4 %; HEMATOCRIT 39.7 % (37-47); IG% 0.2 %; LYMPH ABS # 1.92 K/uL (1.2-3.4); MEAN CELL VOLUME 85.2 fL (80-100); MEAN CORPUSCULAR HEMOGLOBIN 29.6 pg (25-34); MEAN CORPUSCULAR HGB CONC 34.8 g/dl (32-36); MEAN PLATELET VOLUME 8.6 fL (7.4-10.4); MONO % 10.4 %; NEUT % 64.6 %; PLATELET COUNT 214 K/uL (130-400); RED BLOOD COUNT 4.66 M/uL (4.2-5.4); WHITE BLOOD COUNT 8.33 K/uL (4.8-10.8)
[2016-11-20 04:20] LABS: PARTIAL THROMBOPLASTIN RATIO 1.2; PROTHROMBIN TIME (PATIENT) 10.7 SECONDS (9.0-12.0)
[2016-11-20 04:33] LABS: BUN/CREATININE RATIO 15.5 (10-20); CREATININE 0.9 mg/dl (0.60-1.20); MAGNESIUM 2.2 mg/dl (1.8-2.4); POTASSIUM 4.1 mmol/L (3.5-5.1)
[2016-11-20 04:44] LABS: ALB/GLOB RATIO 0.9 (0.9-2); THYROID STIMULATING HORMONE 1.69 uIu/ml (0.300-4.500)
[2016-11-20] MEDS ORDERED: METRONIDAZOLE 250 MG TAB PO STA (06:06)
[2016-11-20] MEDS ORDERED: CIPR-255 PO (06:10)
[2016-11-20] MEDS ORDERED: HYDR-5688 PO (06:10)
[2016-11-20] MEDS ORDERED: METR-162 PO (06:10)
[2016-11-20] MEDS ORDERED: ONDA4TAB10 SL (06:10)
[2016-11-20] MEDS ORDERED: NORCO 5/325MG HOME PACK PO ONE (06:15)
[2016-11-20] MEDS ORDERED: CIPROFLOXACIN 500MG HOME PACK PO ONE (06:15)
[2016-11-20] MEDS ORDERED: ONDANSETRON HOME PACK 4MG OD TAB PO ONE (06:15)
[2016-11-20 06:27] VITALS: BP 127/68; PULSE 78; O2SAT 98
[2016-11-20 06:39] LABS: URINE APPEARANCE CLEAR (CLEAR); URINE BILIRUBIN NEG (NEG); URINE COLOR YELLOW; URINE NITRITE NEG (NEG); URINE SPECIFIC GRAVITY 1.032 (1.000-1.030); UROBILINOGEN NEG (NEG); ZZUR CULT IF INDIC CLEAN CATCH NO
[2016-11-20 06:41] LABS: MANUAL MICROSCOPIC REQUIRED? NO; REVIEW REQ? NO
--- NOTE | 2016-11-20 10:52 | DIAGNOSTIC IMAGING REPORT ---
CHEST COMBO ANGIO DISSECTION CLINICAL HISTORY: 66-year-old female presents with acute abdominal pain. 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 COMPARISON STUDY: CT abdomen and pelvis 09/07/2016, CTA chest 04/22/2016, CTA abdomen and pelvis 02/25/2015, CT chest 08/25/2011. TECHNIQUE: Following the IV administration of 60 cc of Optiray 320, CT angiogram of the chest, abdomen and pelvis was performed from the lung bases the proximal femora. Images are reviewed in the axial, sagittal, and coronal planes. 3-D MIPS images are created and assessed. IV contrast was administered without complication. CT DOSE: 1287.77 mGy.cm FINDINGS: CTA: The heart is upper limits of normal in size without pericardial effusion. No intramural hematoma on the noncontrast study. There is slight kinking of the right subclavian artery (image 10 of the axial series) at the level of the thoracic inlet, with associated moderate stenosis. No thoracic or abdominal aortic aneurysm or dissection identified. There is moderate atherosclerotic plaquing of the abdominal aorta and branch vasculature. No pulmonary embolus is identified. 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 Peripherally calcified fusiform aneurysm dilatation of the splenic artery measures 1.5 x 1.3 cm which also appears to be unchanged. 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 Note is made of a replaced right hepatic artery. Celiac trunk, superior and inferior mesenteric arteries are widely patent without high-grade narrowing. CT CHEST: 2.2 x 1.1 cm low attenuating nodule of the left thyroid lobe appears unchanged from 04/22/2016 and is nonspecific. No pathologic adenopathy of the chest. There is no pneumothorax, pleural effusion or focal airspace consolidation. There is minimal subsegmental dependent atelectasis. Noncalcified pulmonary nodules are present bilaterally, largest of which is within the superior segment left lower lobe measuring 6 mm on image 27 of the axial series which is stable dating back to at least 08/25/2011 compatible with benign etiology. CT ABDOMEN AND PELVIS: Nonspecific coarse calcifications are seen within the right hepatic lobe. There is no intrahepatic or ductal dilatation. The main portal veins appear patent. Gallbladder: Surgically absent. Spleen: Normal in size and attenuation. Pancreas: Unremarkable. Adrenal glands: Unremarkable. Kidneys: Prior right nephrectomy. Left kidney appears unremarkable. Bowel: There is a small hiatal hernia. The appendix appears normal. There is moderate circumferential wall thickening with associated inflammatory fat stranding involving sigmoid diverticuli within the left lower quadrant, notably on image 100 of the axial series without evidence of perforation or abscess. Peritoneum: There is no intraperitoneal free air. There is trace free fluid within the cul-de-sac, likely reactive. Lymphadenopathy: None. Pelvic viscera: The bladder, uterus and adnexa are within normal limits. Skeletal structures: No destructive bony lesions are seen. Multilevel severe facet arthropathy and endplate spurring is noted throughout the lumbar spine. IMPRESSION: 1. Findings compatible with acute uncomplicated sigmoid diverticulitis. 2. No acute finding on the CTA portion of the exam. 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 3. Multiple bilateral pulmonary nodules with largest measuring 6 mm in the left lower lobe, unchanged from 08/25/2011 compatible with benign etiology. 4. Incidental findings include prior right nephrectomy and cholecystectomy with normal appendix. Electronically signed by: Roman Ramirez 11/20/2016 7:29 AM Dictated Date/Time: 11/20/2016 6:53 AM
--- NOTE | 2016-11-22 07:41 | EMERGENCY ROOM VISIT NOTE ---
History First contact with patient: 03:42 Chief Complaint: ABDOMINAL PAIN Stated Complaint: ABDOMINAL PAIN Nursing Triage Summary: Patient arrived via EMS. EMS reports patient at home and developed L lower abd pain. Patient refused care from paramedics. Patient accepts care from hospital staff. Patient has history of Shahana-Danlos syndrome. History of Present Illness The patient is a 66 year old female who presents to the Emergency Room with complaints of severe left lower abdominal pain that began at home tonight. Patient has a history of Shahana-Danlos with several well-documented aneurysms throughout her vasculature. She does follow with the vascular neurologist locally. The patient describes the pain as sharp. She has not had nausea or vomiting. No fever or chills. She is able to ambulate. The pain does not radiate down her leg. She rates her overall discomfort an 8/10. Review of Systems More than 10 systems were reviewed and otherwise negative with the exception of history of present illness. 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 (3) Hypertension Nos (4) Rupture of kidney (5) Rupture of ovary (6) Splenic Artery Aneurysm Family History Cancer Diabetes mellitus Hypertension Social History Smoking Status: Never Smoker Alcohol Use: none Drug Use: none Marital Status: Housing Status: lives with family Occupation Status: employed Current/Historical Medications Scheduled Atenolol (Tenormin), 100 MG PO HS Ciprofloxacin Hcl (Cipro), 500 MG PO BID Metronidazole (Flagyl), 500 MG PO TID Ondasetron Odt (Zofran Odt), 4 MG SL Q6H Scheduled PRN Hydrocodone/Acetaminophen 5MG/325MG (Cunningham 5MG/325MG), 1-2 TABLET PO Q6 PRN for Pain Tramadol (Ultram), 50 MG PO TID PRN for Pain Allergies Coded Allergies: Sodium Benzoate (Verified Allergy, Unknown, unk, 11/20/16) Physical Exam Vital Signs Date Time Temp Pulse Resp B/P (MAP) Pulse Ox O2 Delivery O2 Flow Rate FiO2 11/20/16 06:27 78 16 127/68 98 11/20/16 05:25 75 16 125/75 97 Room Air 11/20/16 04:07 36.8 80 18 123/68 96 Room Air 11/20/16 03:55 Room Air 11/20/16 03:53 74 Pain Rating (0-10): 3.0 Physical Exam VITALS: Vitals are noted on the nurse's note and reviewed by myself. Vital signs stable. GENERAL: Well-developed, well-nourished, white female, who is in no acute distress and resting comfortably. Patient is cooperative with the examination. HEAD: Normocephalic atraumatic. HEART: Regular rate and rhythm without murmurs gallops or rubs. LUNGS: Clear to auscultation bilaterally without wheezes, rales or rhonchi. No retractions or accessory muscle use. ABDOMEN: Positive normal bowel sounds x 4. Soft with positive left lower quadrant tenderness on palpation. No rebound or guarding. No pulsatile mass. Negative Cullens sign. No evidence of peritonitis. MUSCULOSKELETAL: No muscle atrophy, erythema, or edema noted. Full range of motion without joint tenderness in all extremities. Medical Decision & Procedures ER Provider Diagnostic Interpretation: CHEST COMBO ANGIO DISSECTION CLINICAL HISTORY: 66-year-old female presents with acute abdominal pain. 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 COMPARISON STUDY: CT abdomen and pelvis 09/07/2016, CTA chest 04/22/2016, CTA abdomen and pelvis 02/25/2015, CT chest 08/25/2011. TECHNIQUE: Following the IV administration of 60 cc of Optiray 320, CT angiogram of the chest, abdomen and pelvis was performed from the lung bases the proximal femora. Images are reviewed in the axial, sagittal, and coronal planes. 3-D MIPS images are created and assessed. IV contrast was administered without complication. CT DOSE: 1287.77 mGy.cm FINDINGS: CTA: The heart is upper limits of normal in size without pericardial effusion. No intramural hematoma on the noncontrast study. There is slight kinking of the right subclavian artery (image 10 of the axial series) at the level of the thoracic inlet, with associated moderate stenosis. No thoracic or abdominal aortic aneurysm or dissection identified. There is moderate atherosclerotic plaquing of the abdominal aorta and branch vasculature. No pulmonary embolus is identified. 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 Peripherally calcified fusiform aneurysm dilatation of the splenic artery measures 1.5 x 1.3 cm which also appears to be unchanged. 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 Note is made of a replaced right hepatic artery. Celiac trunk, superior and inferior mesenteric arteries are widely patent without high-grade narrowing. CT CHEST: 2.2 x 1.1 cm low attenuating nodule of the left thyroid lobe appears unchanged from 04/22/2016 and is nonspecific. No pathologic adenopathy of the chest. There is no pneumothorax, pleural effusion or focal airspace consolidation. There is minimal subsegmental dependent atelectasis. Noncalcified pulmonary nodules are present bilaterally, largest of which is within the superior segment left lower lobe measuring 6 mm on image 27 of the axial series which is stable dating back to at least 08/25/2011 compatible with benign etiology. CT ABDOMEN AND PELVIS: Nonspecific coarse calcifications are seen within the right hepatic lobe. There is no intrahepatic or ductal dilatation. The main portal veins appear patent. Gallbladder: Surgically absent. Spleen: Normal in size and attenuation. Pancreas: Unremarkable. Adrenal glands: Unremarkable. Kidneys: Prior right nephrectomy. Left kidney appears unremarkable. Bowel: There is a small hiatal hernia. The appendix appears normal. There is moderate circumferential wall thickening with associated inflammatory fat stranding involving sigmoid diverticuli within the left lower quadrant, notably on image 100 of the axial series without evidence of perforation or abscess. Peritoneum: There is no intraperitoneal free air. There is trace free fluid within the cul-de-sac, likely reactive. Lymphadenopathy: None. Pelvic viscera: The bladder, uterus and adnexa are within normal limits. Skeletal structures: No destructive bony lesions are seen. Multilevel severe facet arthropathy and endplate spurring is noted throughout the lumbar spine. IMPRESSION: 1. Findings compatible with acute uncomplicated sigmoid diverticulitis. 2. No acute finding on the CTA portion of the exam. 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 3. Multiple bilateral pulmonary nodules with largest measuring 6 mm in the left lower lobe, unchanged from 08/25/2011 compatible with benign etiology. 4. Incidental findings include prior right nephrectomy and cholecystectomy with normal appendix. Laboratory Results 11/20/16 03:53 Red Blood Count 4.66, Mean Corpuscular Volume 85.2, Mean Corpuscular Hemoglobin 29.6, Mean Corpuscular Hemoglobin Concent 34.8, Mean Platelet Volume 8.6, Neutrophils (%) (Auto) 64.6, Lymphocytes (%) (Auto) 23.0, Monocytes (%) (Auto) 10.4, Eosinophils (%) (Auto) 1.4, Basophils (%) (Auto) 0.4, Neutrophils # (Auto ) 5.37, Lymphocytes # (Auto) 1.92, Monocytes # (Auto) 0.87, Eosinophils # (Auto ) 0.12, Basophils # (Auto) 0.03 11/20/16 03:53 Test 11/20/16 03:53 11/20/16 05:50 White Blood Count 8.33 K/uL (4.8-10.8) Red Blood Count 4.66 M/uL (4.2-5.4) Hemoglobin 13.8 g/dL (12.0-16.0) Hematocrit 39.7 % (37-47) Mean Corpuscular Volume 85.2 fL (80-100) Mean Corpuscular Hemoglobin 29.6 pg (25-34) Mean Corpuscular Hemoglobin Concent 34.8 g/dl (32-36) Platelet Count 214 K/uL (130-400) Mean Platelet Volume 8.6 fL (7.4-10.4) Neutrophils (%) (Auto) 64.6 % Lymphocytes (%) (Auto) 23.0 % Monocytes (%) (Auto) 10.4 % Eosinophils (%) (Auto) 1.4 % Basophils (%) (Auto) 0.4 % Neutrophils # (Auto) 5.37 K/uL (1.4-6.5) Lymphocytes # (Auto) 1.92 K/uL (1.2-3.4) Monocytes # (Auto) 0.87 K/uL (0.11-0.59) Eosinophils # (Auto) 0.12 K/uL (0-0.5) Basophils # (Auto) 0.03 K/uL (0-0.2) RDW Standard Deviation 39.3 fL (36.4-46.3) RDW Coefficient of Variation 12.7 % (11.5-14.5) Immature Granulocyte % (Auto) 0.2 % Immature Granulocyte # (Auto) 0.02 K/uL (0.00-0.02) Prothrombin Time 10.7 SECONDS (9.0-12.0) Prothromb Time International Ratio 1.0 (0.9-1.1) Activated Partial Thromboplast Time 30.9 SECONDS (21.0-31.0) Partial Thromboplastin Ratio 1.2 Anion Gap 6.0 mmol/L (3-11) Est Creatinine Clear Calc Drug Dose 54.4 ml/min Estimated GFR () 77.8 Estimated GFR (Non- 67.1 BUN/Creatinine Ratio 15.5 (10-20) Calcium Level 9.0 mg/dl (8.5-10.1) Magnesium Level 2.2 mg/dl (1.8-2.4) Total Bilirubin 0.6 mg/dl (0.2-1) Aspartate Amino Transf (AST/SGOT) 23 U/L (15-37) Alanine Aminotransferase (ALT/SGPT) 28 U/L (12-78) Alkaline Phosphatase 86 U/L (45-117) Total Protein 7.0 gm/dl (6.4-8.2) Albumin 3.4 gm/dl (3.4-5.0) Globulin 3.6 gm/dl (2.5-4.0) Albumin/Globulin Ratio 0.9 (0.9-2) Lipase 134 U/L (73-393) Thyroid Stimulating Hormone (TSH) 1.690 uIu/ml (0.300-4.500) Urine Color YELLOW Urine Appearance CLEAR (CLEAR) Urine pH 6.0 (4.5-7.5) Urine Specific Goodwell 1.032 (1.000-1.030) Urine Protein NEG (NEG) Urine Glucose (UA) NEG (NEG) Urine Ketones NEG (NEG) Urine Occult Blood TRACE (NEG) Urine Nitrite NEG (NEG) Urine Bilirubin NEG (NEG) Urine Urobilinogen NEG (NEG) Urine Leukocyte Esterase NEG (NEG) Urine WBC (Auto) 1-5 /hpf (0-5) Urine RBC (Auto) 0-4 /hpf (0-4) Urine Hyaline Casts (Auto) 0 /lpf (0-5) Urine Epithelial Cells (Auto) 10-20 /lpf (0-5) Urine Bacteria (Auto) NEG (NEG) Medications Administered Medications (Trade) Dose Ordered Sig/Delmar Route Start Time Stop Time Status Last Admin Dose Admin Lorazepam (Ativan Inj) 1 mg NOW STAT IV 11/20/16 03:42 11/20/16 03:45 DC 11/20/16 03:56 1 MG Sodium Chloride 1,000 ml @ 999 mls/hr Q1H1M ONCE IV 11/20/16 03:45 11/20/16 04:45 DC 11/20/16 03:56 999 MLS/HR Metronidazole (Flagyl Tab) 500 mg NOW STAT PO 11/20/16 06:06 11/20/16 06:08 DC 11/20/16 06:06 500 MG ED Course Physical exam and history were performed. Nursing notes and EMR were reviewed. Patient appears to have left lower quadrant abdominal pain with acute onset. The patient arrives via ambulance. IV access was established and labs were obtained. The patient was given 1 mg IV Ativan and sent to CT scan for dissection study. The patient blood work is as above and was reviewed. She does not have a significantly elevated white blood cell count, gross anemia, bandemia, or significant electrolyte imbalance. Lipase and transaminases are nondiagnostic. CT scan does not show evidence of aneurysm or dissection acutely, but does reveal an acute sigmoid diverticulitis. Clinically this does correlate with the patient's discomfort. Overall the patient appears stable for discharge home. She will be given Cipro , Flagyl, pain medication, nausea medication. She is to follow with her primary care physician in the next few days for recheck of her condition. She was otherwise invited back to the emergency department with any new, worsening, or concerning symptoms. The patient was pleased with plan of care voice understanding. She rated her discomfort a 2/10 at the time of departure. The chart was completed utilizing [employer] Speech Voice Recognition Software. Grammatical errors, random word insertions, pronoun errors, and incomplete sentences are an occasional consequence of this system due to software limitations, ambient noise, and hardware issues. Any formal questions or concerns about the content, text, or information contained within the body of this dictation should be directly addressed to the provider for clarification. . Medical Decision Differential diagnosis: Etiologies such as appendicitis, diverticulitis, PUD, biliary pathology, UTI, pancreatitis, obstruction, mesenteric ischemia, aortic pathology, infections, inflammatory bowel disease, renal colic, as well as others were entertained. Impression Primary Impression: Sigmoid diverticulitis Departure Information Dispostion Home / Self-Care Condition GOOD Prescriptions Ondasetron Odt (ZOFRAN ODT) 4 Mg Tab 4 MG SL Q6H for Nausea, #12 TAB Prov: Favio Casey PA-C 11/20/16 Hydrocodone/Acetaminophen 5MG/325MG (Cunningham 5MG/325MG) Tab 1-2 TABLET PO Q6 Y for Pain, #20 TAB For Initial Treatment Prov: Favio Casey PA-C 11/20/16 Metronidazole (FLAGYL) 500 Mg Tab 500 MG PO TID for 10 Days, #30 TAB Prov: Favio Casey PA-C 11/20/16 Ciprofloxacin Hcl (CIPRO) 500 Mg Tab 500 MG PO BID for 10 Days, #20 TAB Prov: Favio Casey PA-C 11/20/16 Forms HOME CARE DOCUMENTATION FORM, IMPORTANT VISIT INFORMATION Patient Instructions My [facility] Additional Instructions You were seen and evaluated today on an emergency basis only. This is not a substitute for, or an effort to provide, complete comprehensive medical care. It is not possible to recognize and treat all injuries or illnesses in a single emergency department visit. For this reason it is recommended that you followup with your primary care physician this week for ongoing care and evaluation. Call today to make an appointment. Cunningham (hydrocodone/acetaminophen) 5/325 mg ONE or TWO every 6 hours as needed for worsening breakthrough pain. Do not drink or drive on [place]. This medication will likely make you tired. Do not take Cunningham and Tylenol at the same time as both contain acetaminophen. Cunningham may cause constipation. You may wish to take an [id number] stool softener like Colace if this occurs. Zofran 1 tablet every 6 hrs as needed for nausea. Ciprofloxacin(Cipro) 500mg: Take one pill twice daily for 10 days for your infection. All antibiotics can cause diarrhea. If this occurs and you feel worse or it does not resolve in 1-2 days follow up with your doctor or return to the Emergency Department as this could be signs of serious underlying problems. If you experience any pain in your tendons or any tendon injury return to the ER for re-evaluation. Any medication can cause an allergic reaction, stop the pills immediately and return to the ER for rash, hives, breathing difficulties, or swelling. Metronidazole(Flagyl) 500mg: Take one pill three times daily for 10 days for your infection. DO NOT drink alcohol or take alcohol containing products with this medication. Any medication can cause an allergic reaction, stop the pills immediately and return to the ER for rash, hives, breathing difficulties, or swelling. You are welcome to return to the emergency department anytime with new, worsening, or concerning symptoms.
== END 2016-11-20 06:28 | disposition home or self-care (01) ==
LOC: EDBD 03:44 → C.EDB 03:49
DX: K57.30 Diverticulosis of large intestine without perforation or abscess without bleeding (principal); I72.8 Aneurysm of other specified arteries; Q79.6 Ehlers-Danlos syndromes; I10 Essential (primary) hypertension; Z83.3 Family history of diabetes mellitus; Z82.49 Family history of ischemic heart disease and other diseases of the circulatory system

== ENCOUNTER 2019-01-15 18:58 | Observation (INO) ==
[2019-01-15 19:48] LABS: Basophils # (auto) 0.03 K/uL (0-0.2); Basophils % (auto) 0.7 %; Eosinophils % (auto) 2.5 %; Hematocrit (blood only) 38.6 % (37-47); Hemoglobin 13.8 g/dL (12.0-16.0); Immature Granulocytes # (auto) 0.01 K/uL (0.00-0.02); Immature Granulocytes % (auto) 0.2 %; Lymphocytes # (auto) 1.51 K/uL (1.2-3.4); Lymphocytes % (auto) 37.5 %; Mean Corpuscular Hemoglobin 29.4 pg (25-34); Mean Corpuscular Hgb Conc 35.8 g/dL (32-36); Mean Corpuscular Volume 82.3 fL (80-100); Mean Platelet Volume 8.5 fL (7.4-10.4); Monocytes # (auto) 0.33 K/uL (0.11-0.59); Monocytes % (auto) 8.2 %; Neutrophils # (auto) 2.05 K/uL (1.4-6.5); Neutrophils % (auto) 50.9 %; Platelet Count 194 K/uL (130-400); RDW Coefficient of Variation 13.3 % (11.5-14.5); RDW Standard Deviation 40.1 fL (36.4-46.3); Red Blood Count 4.69 M/uL (4.2-5.4); White Blood Count 4.03 K/uL (4.8-10.8)
[2019-01-15 20:05] LABS: Albumin Level 3.7 gm/dl (3.4-5.0); BUN Creatinine Ratio 17.7 (10-20); Calcium 9.8 mg/dl (8.5-10.1); Creatinine Clr Calc Pharmacy 60.8 ml/min; Est GFR (African American) 83.4; Est GFR (Non-African American) 71.9
[2019-01-15 20:08] LABS: Bilirubin,Total 0.4 mg/dl (0.2-1); Globulin 3.6 gm/dl (2.5-4.0); Total Protein 7.3 gm/dl (6.4-8.2)
[2019-01-15] MEDS ORDERED: OPTIRAY 320 125ml IV PRN (20:25)
[2019-01-15 20:51] LABS: Troponin I 0.015 ng/ml (0-0.045)
[2019-01-15 21:32] LABS: INR 1.1 (0.9-1.1); Partial Thromboplastin Time 28.2 Seconds (21.0-31.0); Prothrombin Time 10.8 Seconds (9.0-12.0)
--- NOTE | 2019-01-15 21:32 | CT Scan Report ---
CT ANGIOGRAPHY OF THE CHEST DISSECTION PROTOCOL CLINICAL HISTORY: Shahana danlos w/CP eval for dissection/hematoma COMPARISON STUDY: Chest CTA August 17, 2018. TECHNIQUE: Before and following the IV administration of 119 mL of Optiray-320, helical axial images of the chest were obtained. Maximal intensity projections and sagittal and coronal reformats were vi ewed on an independent 3D workstation. IV contrast was administered without complication. Automated exposure control was utilized for the study. A dose lowering technique was utilized adhering to the principles of ALARA. CT DOSE: 1083.04 mGy.cm FINDINGS: No thoracic aortic dissection is noted. There is no intramural hematoma within the thoraci c aorta. The heart is moderately enlarged. There is no pericardial effusion. Central airways are cohen nt. No pneumothorax or pleural effusion is noted. Numerous pulmonary nodules are again noted. The zee ority of these are unchanged. A 7 mm groundglass right lower lobe nodule on image 192 is not well vis ualized on prior exam. This is indeterminate. A few thyroid nodules are noted. There is trace pericar dial fluid. Of note, there are are multiple sites of infiltration within each upper breast and left u pper chest wall. No active extravasation is noted. The abdomen and pelvis will be reported separately . IMPRESSION: 1. No thoracic aortic dissection. 2. Multiple sites of infiltration within each upper breast and chest wall which suggest small foci of hemorrhage. No active extravasation. The etiology for this hemorrhage is not clear on this exam. 3. 7 mm groundglass right lower lobe nodule. A follow up chest CT in 6 months to ensure stability is recommended. Electronically signed by: Jose Tapia M.D. 01/15/2019 9:29 PM
--- NOTE | 2019-01-15 21:43 | CT Scan Report ---
CT angio abdomen pelvis w con CLINICAL HISTORY: Shahana danlos w/CP eval for dissection/hematoma COMPARISON STUDY: CTA of the abdomen and pelvis August 17, 2018. TECHNIQUE: Helical axial images of the abdomen and pelvis were obtained during arterial phase followi ng intravenous injection of 119 cc Optiray 320 IV. Sagittal and coronal reconstructions were viewed a s well as maximal intensity projections on an independent 3-D workstation. Automated exposure control was utilized for the study. A dose lowering technique was utilized adhering to the principles of AL SOILA. FINDINGS: Please note that the chest will be reported separately. Aneurysms of the celiac axis, splen ic artery and left renal artery are unchanged since CT of August 17, 2018. There is no dissection with in the abdominal aorta. No pneumatosis, free air or portal venous gas is present. Arterial phase imag es of the liver, spleen, adrenal glands, pancreas and left kidney are unchanged. The right kidney is surgically absent. There are left-sided parapelvic cysts. There is no evidence for a bowel obstructio n. The appendix is normal. Note is made of infiltration suggestive of hemorrhage within the mesentery from the proximal transverse colon. This extends for 5.1 cm. A few smaller foci of hemorrhage are no jeromy, including a small left omental focus. No active extravasation is identified on this examination. Trace fluid within the pelvis is noted. No suspicious osseous lesions are present. There is no lymph adenopathy. IMPRESSION: 1. Multiple foci of intra-abdominal hemorrhage, including an ill-defined focus, measuring 5.1 cm in e xtent, within the mesentery for the transverse colon. No active extravasation. No bowel wall thickeni ng. Close clinical monitoring is recommended given the potential for bowel injury/ischemia. Discussed with Dr. Wetzel at time of dictation. 2. No change in multiple visceral aneurysms since prior CT of August 17, 2018. No abdominal aortic dis section. Electronically signed by: Jose Tapia M.D. 01/15/2019 9:41 PM
--- NOTE | 2019-01-15 22:45 | Emergency Department Note ---
Entered by Wendie Espinosa acting as a scribe for History of Present Illness General Chief complaint: Abdominal Pain Stated complaint: COUGH, POSSIBLE RUPTURED DIAPHRAGM Source: patient History of Present Illness Onset (ago): minute(s) 30 Location: abdomen Severity: severe and similar to prior episodes Pain Consistency: + other (Sudden) Maximum Pain Intensity: 8 Quality: + other (Pressure) Exacerbated By: + other (Deep breath) Associated symptoms: + other (Pressure in upper abdomen, couldn't catch breath); no syncope The patient is a 68 year old female presenting to the Emergency Department complaining of sudden upper abdominal pain starting 30 minutes ago. The patient reports that she has severe upper abdominal pain. She states that she was at home and had an episode where she couldnt catch her breath for about 2 minutes. She states she occasionally gets these episodes. She was told by her ENT doctor that she has laryngospasm. She explains that she feels an intense pressure in her upper abdomen and describes her abdominal pain as being hit. She notes that she has experienced these symptoms before. 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 She denies syncope. Home Medications Home Medications Medication Instructions Recorded Confirmed Type tramadol 50 mg PO BID 08/17/18 01/15/19 History atenolol 100 mg PO DAILY 01/15/19 01/15/19 History Allergies Allergy/AdvReac Type Severity Reaction Status Date / Time sodium benzoate Allergy Unknown unk Verified 08/17/18 12:32 Past Med/Surg History Medical History Multiple rib fractures (Acute) Fall from slip, trip, or stumble (Acute) Multiple rib fractures (Acute) Contusion of multiple sites (Acute) Celiac artery aneurysm (Chronic) Rupture of kidney (Resolved) Rupture of ovary (Resolved) Sigmoid diverticulitis (Acute) Superficial thrombosis of left lower extremity (Acute) Shahana-Danlos syndrome (Chronic) Surgical History History of right nephrectomy (Resolved) Family History Other Stomach rupture Social History Preferred Language: Yoruba Communication Ability: Effective Filteration Operator Required: No Beliefs That Will Affect Care: None Current Living Situation: Family Feels Safe at Home: Yes Smoking Status: Never smoker Second Hand Exposure: No ; Hx Alcohol Use: No Hx Substance Use: No Review of Systems See HPI for pertinent positives & negatives. and A total of 10 systems reviewed and were otherwise negative Physical Exam Vital Signs Vital Signs - 24 hr 01/15/19 19:06 01/15/19 21:02 01/15/19 21:53 Temperature 36.4 C L Temperature Source Oral Sepsis Recent Fever Within 48 Hours No Sepsis New/Unexplained Change in Mental Status No Sepsis Action Taken by Nursing No Action Required Pulse Rate 87 Pulse Rate [Apical] 83 74 Pulse Rhythm Regular Pulse Rhythm [Apical] Regular Regular Respiratory Rate 19 18 19 Respiratory Effort / Characteristics Non-Labored Spontaneous Respiratory Depth Shallow Normal Shallow Blood Pressure 148/107 H Blood Pressure [Right Arm] 138/100 131/100 Blood Pressure Mean 120 Blood Pressure Mean [Right Arm] 112 110 Blood Pressure Position Lying Pulse Oximetry 97 97 98 Oxygen Delivery Method Room Air Room Air Room Air Constitutional: Vital signs reviewed. Eyes: Pupils are equal round reactive to light. Conjunctiva are noninjected. ENT: Pharynx is clear without erythema or exudate. Mucous membranes are moist. Neck supple without meningeal signs. Respiratory: Clear to auscultation bilaterally. Breath sounds are equal bila terally. Cardiovascular: Regular rate and rhythm. No rubs or gallops. GI: Soft and nondistended. Bowel sounds are present. RUQ tenderness. No guarding. Musculoskeletal: No peripheral edema. No lower extremity tenderness. Integumentary: No cyanosis. Neurological: The patient is awake and alert. No focal deficits. Psychiatric: Normal affect. Course 1911: The patient was evaluated in room B8, and a complete history and physical examination were performed. 2141: I discussed the patients case with Dr. Tapia Radiologist. He reported that there are foci of hemorrhage throughout the patients chest and abdomen on her CT. 2149: I talked to the patient about her CT scan at this time. The patient reports that she now notices bruising on her breast. I spoke to Dr. Barbosa Surgeon about this and he stated that the patient is not a surgical case at this time. 2155: I discussed the patients case with Dr. Teto PALMER hospitalist. She will evaluate the patient for further admission. Consultations Consultation #1: I discussed the patients case with Dr. Teto PALMER hospitalist. She will evaluate the patient for further admission. Time: 21:55 Administered Medications Ioversol (Optiray 320 125ml) 119 ml IV ONCE PRN PRN Reason: Interaction Checking Stop: 01/19/19 20:24 Last Admin: 01/15/19 20:25 Dose: 119 ml Documented by: [id number] Medical Decision Making Differential Diagnosis Differential diagnoses include abdominal wall hematoma, aortic dissection, laryngo spasm, muscle strain and rib subluxation amongst others. Medical Records Attestation: I reviewed the patient's medical records. I did perform a limited focused review of portions of the patient's old chart on the electronic medical record. The patient was admitted in July 2018 for a rectus sheath hematoma. Home Medications Current Medication List: was personally reviewed by me Laboratory Data Attestation: I reviewed the patient's lab results. Result diagrams: 01/15/19 19:27 01/15/19 19:27 Lab Results 01/15/19 01/15/19 01/15/19 Range/Units 19:27 19:27 19:27 WBC 4.03 L (4.8-10.8) K/uL RBC 4.69 (4.2-5.4) M/uL Hgb 13.8 (12.0-16.0) g/dL Hct 38.6 (37-47) % MCV 82.3 (80-100) fL MCH 29.4 (25-34) pg MCHC 35.8 (32-36) g/dL RDW Std Deviation 40.1 (36.4-46.3) fL RDW Coeff of Lucero 13.3 (11.5-14.5) % Plt Count 194 (130-400) K/uL MPV 8.5 (7.4-10.4) fL Immature Gran % (Auto) 0.2 % Neut % (Auto) 50.9 % Lymph % (Auto) 37.5 % Candler % (Auto) 8.2 % Eos % (Auto) 2.5 % Baso % (Auto) 0.7 % Immature Gran # (Auto) 0.01 (0.00-0.02) K/uL Neut # (Auto) 2.05 (1.4-6.5) K/uL Lymph # (Auto) 1.51 (1.2-3.4) K/uL Candler # (Auto) 0.33 (0.11-0.59) K/uL Eos # (Auto) 0.10 (0-0.5) K/uL Baso # (Auto) 0.03 (0-0.2) K/uL PT Cancelled INR Cancelled APTT Cancelled PTT Ratio Cancelled Sodium 140 (136-145) mmol/L Potassium 4.0 (3.5-5.1) mmol/L Chloride 106 (98-107) mmol/L Carbon Dioxide 27 (21-32) mmol/L Anion Gap 6.0 (3-11) BUN 15 (7-18) mg/dl Creatinine 0.84 (0.6-1.2) mg/dl Est Cr Clr Drug Dosing 60.8 ml/min Est GFR ( Amer) 83.4 Est GFR (Non-Af Amer) 71.9 BUN/Creatinine Ratio 17.7 (10-20) Glucose 105 H (70-99) mg/dl Calcium 9.8 (8.5-10.1) mg/dl Total Bilirubin 0.4 (0.2-1) mg/dl AST 33 (15-37) U/L ALT 40 (12-78) U/L Alkaline Phosphatase 88 (45-117) U/L Troponin I 0.015 (0-0.045) ng/ml Total Protein 7.3 (6.4-8.2) gm/dl Albumin 3.7 (3.4-5.0) gm/dl Globulin 3.6 (2.5-4.0) gm/dl Albumin/Globulin Ratio 1.0 (0.9-2) 01/15/19 Range/Units 21:12 WBC (4.8-10.8) K/uL RBC (4.2-5.4) M/uL Hgb (12.0-16.0) g/dL Hct (37-47) % MCV (80-100) fL MCH (25-34) pg MCHC (32-36) g/dL RDW Std Deviation (36.4-46.3) fL RDW Coeff of Lucero (11.5-14.5) % Plt Count (130-400) K/uL MPV (7.4-10.4) fL Immature Gran % (Auto) % Neut % (Auto) % Lymph % (Auto) % Candler % (Auto) % Eos % (Auto) % Baso % (Auto) % Immature Gran # (Auto) (0.00-0.02) K/uL Neut # (Auto) (1.4-6.5) K/uL Lymph # (Auto) (1.2-3.4) K/uL Candler # (Auto) (0.11-0.59) K/uL Eos # (Auto) (0-0.5) K/uL Baso # (Auto) (0-0.2) K/uL PT 10.8 INR 1.1 APTT 28.2 PTT Ratio 1.0 Sodium (136-145) mmol/L Potassium (3.5-5.1) mmol/L Chloride (98-107) mmol/L Carbon Dioxide (21-32) mmol/L Anion Gap (3-11) BUN (7-18) mg/dl Creatinine (0.6-1.2) mg/dl Est Cr Clr Drug Dosing ml/min Est GFR ( Amer) Est GFR (Non-Af Amer) BUN/Creatinine Ratio (10-20) Glucose (70-99) mg/dl Calcium (8.5-10.1) mg/dl Total Bilirubin (0.2-1) mg/dl AST (15-37) U/L ALT (12-78) U/L Alkaline Phosphatase (45-117) U/L Troponin I (0-0.045) ng/ml Total Protein (6.4-8.2) gm/dl Albumin (3.4-5.0) gm/dl Globulin (2.5-4.0) gm/dl Albumin/Globulin Ratio (0.9-2) Imaging Data Radiologist's Impression: Radiology results as stated below per my review and the radiologist's interpretation: CT ANGIOGRAPHY OF THE CHEST DISSECTION PROTOCOL CLINICAL HISTORY: Shahana danlos w/CP eval for dissection/hematoma COMPARISON STUDY: Chest CTA August 17, 2018. TECHNIQUE: Before and following the IV administration of 119 mL of Optiray-320, helical axial images of the chest were obtained. Maximal intensity projections and sagittal and coronal reformats were viewed on an independent 3D workstation. IV contrast was administered without complication. Automated exposure control was utilized for the study. A dose lowering technique was utilized adhering to the principles of ALARA. CT DOSE: 1083.04 mGy.cm FINDINGS: No thoracic aortic dissection is noted. There is no intramural hematoma within the thoracic aorta. The heart is moderately enlarged. There is no pericardial effusion. Central airways are patent. No pneumothorax or pleural effusion is noted. Numerous pulmonary nodules are again noted. The majority of these are unchanged. A 7 mm groundglass right lower lobe nodule on image 192 is not well visualized on prior exam. This is indeterminate. A few thyroid nodules are noted. There is trace pericardial fluid. Of note, there are are multiple sites of infiltration within each upper breast and left upper chest wall. No active extravasation is noted. The abdomen and pelvis will be reported se parately. IMPRESSION: 1. No thoracic aortic dissection. 2. Multiple sites of infiltration within each upper breast and chest wall which suggest small foci of hemorrhage. No active extravasation. The etiology for this hemorrhage is not clear on this exam. 3. 7 mm groundglass right lower lobe nodule. A follow up chest CT in 6 months to ensure stability is recommended. Electronically signed by: Jose Tapia M.D. 01/15/2019 9:[address] angio abdomen pelvis w con CLINICAL HISTORY: Shahana atkins w/CP eval for dissection/hematoma COMPARISON STUDY: CTA of the abdomen and pelvis August 17, 2018. TECHNIQUE: Helical axial images of the abdomen and pelvis were obtained during arterial phase following intravenous injection of 119 cc Optiray 320 IV. Sagittal and coronal reconstructions were viewed as well as maximal intensity projections on an independent 3-D workstation. Automated exposure control was utilized for the study. A dose lowering technique was utilized adhering to the principles of ALARA. FINDINGS: Please note that the chest will be reported separately. 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 There is no dissection within the abdominal aorta. No pn eumatosis, free air or portal venous gas is present. Arterial phase images of the liver, spleen, adrenal glands, pancreas and left kidney are unchanged. The right kidney is surgically absent. There are left-sided parapelvic cysts. There is no evidence for a bowel obstruction. The appendix is normal. Note is made of infiltration suggestive of hemorrhage within the mesentery from the proximal transverse colon. This extends for 5.1 cm. A few smaller foci of hemorrhage are noted, including a small left omental focus. No active extravasation is identified on this examination. Trace fluid within the pelvis is noted. No suspicious osseous lesions are present. There is no lymphadenopathy. IMPRESSION: 1. Multiple foci of intra-abdominal hemorrhage, including an ill-defined focus, measuring 5.1 cm in extent, within the mesentery for the transverse colon. No active extravasation. No bowel wall thickening. Close clinical monitoring is recommended given the potential for bowel injury/ischemia. Discussed with Dr. Wetzel at time of dictation. 2. No change in multiple visceral aneurysms since prior CT of August 17, 2018. No abdominal aortic dissection. Electronically signed by: Jose Tapia M.D. 01/15/2019 9:41 PM ECG Data Attestation: I personally reviewed and interpreted this ECG as follows: Indication: chest pain Rate (beats per minute): 82 Rhythm: normal sinus Findings: no PVC and no ST elevation Blood Pressure Blood Pressure Findings: Elevated blood pressure Blood Pressure Disposition: further management by hospitalist PEEWEE Green I did evaluate the patient as noted above. The patient is presenting with upper abdominal pain after having an episode of laryngospasm with increased intra- abdominal and thoracic pressure. She states that she has had a similar episode in July and she was indeed admitted here for a rectus sheath hematoma. IV access was established. 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 I did order and personally review the patient's 12-lead EKG as described above. There is no evidence of acute ischemia. I did order and review the patient's blood work as noted in the electronic medical record. She is not anemic. White count is 4. Troponin is negative. I did order a CT angiogram of the chest, abdomen and pelvis. I did review the images myself as well as the radiology report as described above. She does have multiple foci of hemorrhage in her breast, chest wall and abdomen. She has a 5.1 cm foci of hemorrhage in the mesentery of the transverse colon. I did discuss the case with general surgery. Dr. Barbosa stated that there is nothing to do at this time and that she should be watched closely. I did discuss the test results with the patient. She is agreeable to hospitalization. I did discuss the case with Dr. Irene and the behavioral health case manager. Impression & Plan Mesenteric bleeding, Shahana-Danlos disease, Bleeding from breast, Laryngospasm Discharge Plan Visit Data Chief Complaint: Abdominal Pain Stated Complaint: COUGH, POSSIBLE RUPTURED DIAPHRAGM ED Provider: Bigg Wetzel Discharge Problem: Mesenteric bleeding, Shahana-Danlos disease, Bleeding from breast, Laryngospasm Patient Disposition: Being Evaluated by Hospitalist Forms Stand Alone Forms: Call Back Authorization, [facility] Prescriptions Prescriptions: No Action tramadol 50 mg tablet 50 mg PO BID RF: 0 atenolol 100 mg tablet 100 mg PO DAILY RF: 0 Referrals Referrals: Ric Heredia MD [Primary Care Provider] - The scribe's documentation has been prepared under my direction and personally reviewed by me in its entirety. I confirm that the note above accurately reflects all work, treatment, procedures, and medical decision making performed by me.
[2019-01-15] MEDS ORDERED: TRAMADOL HCL 50 MG TABLET PO PRN (23:56)
[2019-01-16] MEDS: LACTATED RINGER'S 1,000 ML IV SCH ×2 (00:19→12:04)
[2019-01-16] MEDS: TRAMADOL HCL 50 MG TABLET PO SCH ×3 (00:23→20:33)
[2019-01-16] MEDS: ATENOLOL 50 MG TABLET PO SCH ×2 (00:40→20:32)
[2019-01-16] MEDS: PANTOprazole 40 MG TAB PO SCH ×2 (00:41→20:33)
--- NOTE | 2019-01-16 02:05 | History & Physical Report ---
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 Mesenteric/intra-abdominal, upper breast and chest wall hemorrhage: CTA Abdomen: multiple foci of intra-abdominal hemorrhage including 5.1cm within mesentery of transverse colon, aneurysms celiac axis, splenic artery and L renal artery since 08/17/18, R kidney surgically absent. Potential for bowel ischemia/injury requiring close monitoring CTA Chest: small foci of hemorrhage within each upper breast and chest wall, no active extravasation, 7mm RLL pulmonary nodule Surgery Dr. Barbosa consulted by ED: advised to observe Hgb 13.8 Tramadol PRN for discomfort Trend Hgb Q8H Monitor vitals closely Repeat imaging if pt having worsening pain or any other concerning symptoms Dyspnea: Recurrent episode of acute-onset choking after breathing. Pt reports 5 similar episodes so far. Most recently hospitalized on 08/17/18 for similar episode which cause rectus sheath hematoma. Per pt seen Dr. 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 Pt had speech therapy after july 2018 admission which did not help much. 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 Follows with Dr. Schwarz and with Dr. Favio Ferreira at [facility]. Continue atenolol and home tramadol GERD Continue home PPI Incidental findinmm RLL lung nodule Follow up CT recommended in 6 months to ensure stable FEN/GI: On LR 80cc/hr, NPO for possible procedure in the event the patient's condition deteriorates DVT prophylaxis: low risk, encourage ambulation, No SCDs given possible trauma given Shahana-Danlos and chemical contraindicated due to bleed Dispo: med/surg Code: DNR/DNI (2) Bleeding from breast: (3) Chest wall hematoma: (4) Laryngospasm: (5) Shahana-Danlos disease: (6) History of right nephrectomy: History of Present Illness Chief Complaint: Dyspnea Primary Care Provider: Ric Heredia MD 68yoF with hx of vascular Shahana-Danlos syndrome, GERD, 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 She had difficulty breathing and took some deep breaths but felt like her diaphragm was kalpesh and she heard pops in her abdomen. A group of students heard the alarm she set off and helped her call 911. At the time of evaluation, her sob had resolved. She was having R flank pain, abdominal pain and L breast region pain. Denies any KRISHNA/dizziness, fever, chills, cp, diarrhea, constipation, nausea, vomiting, dysuria, hematuria, hematochezia. Reports seeing Dr. Dye after 07/2018 admission and as told she has laryngospasm likely triggered by her L vocal cord paralysis. She also had speech therapy this past spring/summer which did not help much. Shx: R nephrectomy, tubal ligation, Tonsillectomy Fhx: Father had Shahana-Danlos and Essie's, 1 sister also has vascular EDS Social Hx: denies alcohol use, tobacco smoke or recreational drug use, hx of 2nd hand tobacco exposure as both parents smoked Allergies Allergy/AdvReac Type Severity Reaction Status Date / Time sodium benzoate Allergy Unknown unk Verified 08/17/18 12:32 Home Medications Home Medications Medication Instructions Recorded Confirmed Type tramadol 50 mg PO BID 08/17/18 01/15/19 History atenolol 100 mg PO DAILY 01/15/19 01/15/19 History Past Med/Surg History Medical History Multiple rib fractures (Acute) Fall from slip, trip, or stumble (Acute) Multiple rib fractures (Acute) Contusion of multiple sites (Acute) Celiac artery aneurysm (Chronic) Rupture of kidney (Resolved) Rupture of ovary (Resolved) Sigmoid diverticulitis (Acute) Superficial thrombosis of left lower extremity (Acute) Shahana-Danlos syndrome (Chronic) Surgical History History of right nephrectomy (Resolved) Family History Other Stomach rupture Social History Preferred Language: Divehi Communication Ability: Effective Pump Erector Required: No Beliefs That Will Affect Care: None Current Living Situation: Family Current Living Situation Comment: son Other Information That Helps Us Care for You: No Feels Safe at Home: Yes Safety Concerns: Feels Safe At This Time Smoking Status: Never smoker Second Hand Exposure: No ; Hx Alcohol Use: No Hx Substance Use: No Review of Systems Review of Systems: As per HPI Physical Exam Physical Exam: General: In NAD Neuro: A&O x 4 Pulm: CTAB, equal breath sounds bilaterally CV: RRR, no m/r/g Abdomen:+BS, mild TTP of upper abdomen, non-distended Skin: L breast hematoma, R flank region hematoma LE: no LE edema, no calf TTP Results & Data Vital Signs (Past 12 Hours) Vital Signs Temp Pulse Pulse Resp BP BP BP 01/15/19 23:45 36.6 C 65 16 145/95 H 01/15/19 23:33 70 16 130/91 01/15/19 21:53 74 19 131/100 01/15/19 21:02 83 18 138/100 01/15/19 19:06 36.4 C L 87 19 148/107 H Pulse Ox 01/15/19 23:45 95 01/15/19 23:33 97 01/15/19 21:53 98 01/15/19 21:02 97 01/15/19 19:06 97 Laboratory Results Abnormal lab results 01/15/19 01/15/19 Range/Units 19:27 19:27 WBC 4.03 L (4.8-10.8) K/uL Glucose 105 H (70-99) mg/dl Diagnostic Findings CT ANGIOGRAPHY OF THE CHEST DISSECTION PROTOCOL CLINICAL HISTORY: Shahana danlos w/CP eval for dissection/hematoma COMPARISON STUDY: Chest CTA August 17, 2018. TECHNIQUE: Before and following the IV administration of 119 mL of Optiray-320, helical axial images of the chest were obtained. Maximal intensity projections and sagittal and coronal reformats were viewed on an independent 3D workstation. IV contrast was administered without complication. Automated exposure control was utilized for the study. A dose lowering technique was utilized adhering to the principles of ALARA. CT DOSE: 1083.04 mGy.cm FINDINGS: No thoracic aortic dissection is noted. There is no intramural hematoma within the thoracic aorta. The heart is moderately enlarged. There is no pericardial effusion. Central airways are patent. No pneumothorax or pleural effusion is noted. Numerous pulmonary nodules are again noted. The majority of these are unchanged. A 7 mm groundglass right lower lobe nodule on image 192 is not well visualized on prior exam. This is indeterminate. A few thyroid nodules are noted. There is trace pericardial fluid. Of note, there are are multiple sites of infiltration within each upper breast and left upper chest wall. No active extravasation is noted. The abdomen and pelvis will be reported separately. IMPRESSION: 1. No thoracic aortic dissection. 2. Multiple sites of infiltration within each upper breast and chest wall which suggest small foci of hemorrhage. No active extravasation. The etiology for this hemorrhage is not clear on this exam. 3. 7 mm groundglass right lower lobe nodule. A follow up chest CT in 6 months to ensure stability is recommended. CT angio abdomen pelvis w con CLINICAL HISTORY: Shahana danlos w/CP eval for dissection/hematoma COMPARISON STUDY: CTA of the abdomen and pelvis August 17, 2018. TECHNIQUE: Helical axial images of the abdomen and pelvis were obtained during arterial phase following intravenous injection of 119 cc Optiray 320 IV. Sagittal and coronal reconstructions were viewed as well as maximal intensity projections on an independent 3-D workstation. Automated exposure control was utilized for the study. A dose lowering technique was utilized adhering to the principles of ALARA. FINDINGS: Please note that the chest will be reported separately. 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 There is no dissection within the abdominal aorta. No pneumatosis, free air or portal venous gas is present. Arterial phase images of the liver, spleen, adrenal glands, pancreas and left kidney are unchanged. The right kidney is surgically absent. There are left-sided parapelvic cysts. There is no evidence for a bowel obstruction. The appendix is normal. Note is made of infiltration suggestive of hemorrhage within the mesentery from the proximal transverse colon. This extends for 5.1 cm. A few smaller foci of hemorrhage are noted, including a small left omental focus. No active extravasation is identified on this examination. Trace fluid within the pelvis is noted. No suspicious osseous lesions are present. There is no lymphadenopathy. IMPRESSION: 1. Multiple foci of intra-abdominal hemorrhage, including an ill-defined focus, measuring 5.1 cm in extent, within the mesentery for the transverse colon. No active extravasation. No bowel wall thickening. Close clinical monitoring is recommended given the potential for bowel injury/ischemia. Discussed with Dr. Wetzel at time of dictation. 2. No change in multiple visceral aneurysms since prior CT of August 17, 2018. No abdominal aortic dissection. Medications Administered Current Inpatient Medications Atenolol (Tenormin) 100 mg PO HS OMAR Stop: 02/14/19 21:00 Last Admin: 01/16/19 00:40 Dose: 100 mg Documented by: Lactated Ringer's (Lr) 1,000 mls @ 80 mls/hr IV .[id number] OMAR Stop: 01/17/19 00:55 Last Admin: 01/16/19 00:19 Dose: 80 mls/hr Documented by: Ioversol (Optiray 320 125ml) 119 ml IV ONCE PRN PRN Reason: Interaction Checking Stop: 01/19/19 20:24 Last Admin: 01/15/19 20:25 Dose: 119 ml Documented by: Pantoprazole Sodium (Protonix) 40 mg PO HS OMAR Stop: 02/14/19 21:00 Last Admin: 01/16/19 00:41 Dose: 40 mg Documented by: Tramadol HCl (Ultram) 50 mg PO BID OMAR Stop: 02/14/19 23:55 Last Admin: 01/16/19 00:23 Dose: 50 mg Documented by: Tramadol HCl (Ultram) 50 mg PO Q4H PRN PRN Reason: Pain Stop: 02/14/19 23:55 Code Status & VTE Plan Code Status DNR/DNI VTE Prophylaxis Plan VTE Prophylaxis will be ordered: No Supervising Physician Co-Signing Physician Notes Patient seen and examined, chart reviewed, case discussed with Dr. Borges and I agree with her assessment and plan as documented above. Briefly, patient is a 68yo C female with complex medical history of vascular EDS as well as VCD/ paralysis presenting with spontaneous hemorrhage. Patient had episode of laryngospasm at work, was breathing against a closed glottis and felt a pop in her abdomen. Found to have multiple spontaneous hematomas. Patient has had history of similar presentation in the past Presently afebrile, HD stable, in NAD Pain in right side with notable bruising on right side Labs and images reviewed Assessment/Plan: 68yo C female with vascular EDS presenting with acute spontaneous hemorrhage in setting of increased intrathoracic/intraabdominal pressure, laryngospasm -Monitor CBC -Monitor for progression in pain, firmness of abdomen, extension of bruising -Pain control -Remainder of plan as above PG Care Time/CCT Total # of Minutes Spent Total Time Spent with Patient: Total time spent is greater than 50% in coordination of care (as documented) at patient's floor/unit and/or counseling patient: Resident Activity Tracking Resident Involvement: Resident Care Provided Care Provided: Adult Hospital Medicine
--- NOTE | 2019-01-16 10:39 | Family Medicine Progress Note ---
Date of Service January 16, 2019 Assessment & Plan (1) Shahana-Danlos disease: 68yoF with Hx of Shahana-Danlos syndrome, GERD, recurrent laryngospasm and recurrent bleeds who presented with trouble breathing. Intraabdominal bleeding -H/H stable; will stop trend -continue tramadol prn for pain -CT chest/Abdomen showing multiple hemorrhages. Also lung nodule noted. SOB -Following with outpt ENT-likely laryngospasm related currently resolved; will continue to monitor. -discussed possibility of silent GERD. On omeprazole. Should follow with ENT as outpatient Shahana-Danlos -Follows with Dr. Landa for abd aneurysms. -Per Dr. Landa, no acute intervention. -continue home atenolol and tramadol GERD: -continue home meds FEN/GI: advancing diet DVT proph: given bleeding, low risk CODE STATUS: DNR/DNI Dispo: discharge once stable Supervising Physician Co-Signing Physician Notes Resident Physician Supervision Note: I independently interviewed and examined the patient and verified the bernabe history and physical, reviewed labs and image studies, discussed the case with the resident Dr. Marie and agree with the findings and care plan. Subjective Ms. Sims states her pain is well controlled this AM. However she still has soreness all over her body but particularly around her breasts and abdomen. Currently denies KRISHNA, chest pain, N/V, palps, diarrhea or constipation. Review of Systems Review of Systems: All systems reviewed & are unremarkable except as noted in HPI & below Physical Exam Physical Exam: General: Alert, oriented. No acute distress laying in bed HEENT: NC/AT, PERRLA, EOMI, oropharynx moist. Chest: tender to palpation over right breast. Patch of bleeding in that area as well. CV: RRR, Normal s1, s2. No murmurs appreciated Resp: Breath sounds clear bilaterally, no increased effort of breathing. No crackles/rhonchi/rales. Abdomen: Soft, diffusely tender but mild, nondistended. No guarding. No organomegaly appreciated. Extremities: No edema in lower extremities bilaterally. Results & Data Vital Signs (Past 12 Hours) Vital Signs Temp Pulse Pulse Resp BP BP Pulse Ox 01/16/19 08:00 36.6 C 56 L 18 138/76 94 01/15/19 23:45 36.6 C 65 16 145/95 H 95 01/15/19 23:33 70 16 130/91 97 Laboratory Results Laboratory Results - last 24 hr 01/15/19 01/15/19 01/15/19 19:27 19:27 19:27 WBC 4.03 L RBC 4.69 Hgb 13.8 Hct 38.6 MCV 82.3 MCH 29.4 MCHC 35.8 RDW Std Deviation 40.1 RDW Coeff of Lucero 13.3 Plt Count 194 MPV 8.5 Immature Gran % (Auto) 0.2 Neut % (Auto) 50.9 Lymph % (Auto) 37.5 Wilkes % (Auto) 8.2 Eos % (Auto) 2.5 Baso % (Auto) 0.7 Immature Gran # (Auto) 0.01 Neut # (Auto) 2.05 Lymph # (Auto) 1.51 Wilkes # (Auto) 0.33 Eos # (Auto) 0.10 Baso # (Auto) 0.03 PT Cancelled INR Cancelled APTT Cancelled PTT Ratio Cancelled Sodium 140 Potassium 4.0 Chloride 106 Carbon Dioxide 27 Anion Gap 6.0 BUN 15 Creatinine 0.84 Est Cr Clr Drug Dosing 60.8 Est GFR ( Amer) 83.4 Est GFR (Non-Af Amer) 71.9 BUN/Creatinine Ratio 17.7 Glucose 105 H Calcium 9.8 Total Bilirubin 0.4 AST 33 ALT 40 Alkaline Phosphatase 88 Troponin I 0.015 Total Protein 7.3 Albumin 3.7 Globulin 3.6 Albumin/Globulin Ratio 1.0 Hepatitis C Ab Screen 01/15/19 01/16/19 01/16/19 21:12 04:15 04:15 WBC RBC Hgb 13.5 Hct MCV MCH MCHC RDW Std Deviation RDW Coeff of Lucero Plt Count MPV Immature Gran % (Auto) Neut % (Auto) Lymph % (Auto) Wilkes % (Auto) Eos % (Auto) Baso % (Auto) Immature Gran # (Auto) Neut # (Auto) Lymph # (Auto) Wilkes # (Auto) Eos # (Auto) Baso # (Auto) PT 10.8 INR 1.1 APTT 28.2 PTT Ratio 1.0 Sodium Potassium Chloride Carbon Dioxide Anion Gap BUN Creatinine Est Cr Clr Drug Dosing Est GFR ( Amer) Est GFR (Non-Af Amer) BUN/Creatinine Ratio Glucose Calcium Total Bilirubin AST ALT Alkaline Phosphatase Troponin I Total Protein Albumin Globulin Albumin/Globulin Ratio Hepatitis C Ab Screen Neg 01/16/19 12:18 WBC RBC Hgb 13.4 Hct MCV MCH MCHC RDW Std Deviation RDW Coeff of Lucero Plt Count MPV Immature Gran % (Auto) Neut % (Auto) Lymph % (Auto) Wilkes % (Auto) Eos % (Auto) Baso % (Auto) Immature Gran # (Auto) Neut # (Auto) Lymph # (Auto) Wilkes # (Auto) Eos # (Auto) Baso # (Auto) PT INR APTT PTT Ratio Sodium Potassium Chloride Carbon Dioxide Anion Gap BUN Creatinine Est Cr Clr Drug Dosing Est GFR ( Amer) Est GFR (Non-Af Amer) BUN/Creatinine Ratio Glucose Calcium Total Bilirubin AST ALT Alkaline Phosphatase Troponin I Total Protein Albumin Globulin Albumin/Globulin Ratio Hepatitis C Ab Screen Medications Administered Home Medications tramadol 50 mg PO BID 08/17/18 [History Confirmed 01/15/19] atenolol 100 mg PO DAILY 01/15/19 [History Confirmed 01/15/19] Active Medications Atenolol (Tenormin) 100 mg PO HS OMAR Stop: 02/14/19 21:00 Last Admin: 01/16/19 00:40 Dose: 100 mg Documented by: Lactated Ringer's (Lr) 1,000 mls @ 80 mls/hr IV .[id number] OMAR Stop: 01/17/19 00:55 Last Admin: 01/16/19 12:04 Dose: 80 mls/hr Documented by: Ioversol (Optiray 320 125ml) 119 ml IV ONCE PRN PRN Reason: Interaction Checking Stop: 01/19/19 20:24 Last Admin: 01/15/19 20:25 Dose: 119 ml Documented by: Pantoprazole Sodium (Protonix) 40 mg PO HS OMAR Stop: 02/14/19 21:00 Last Admin: 01/16/19 00:41 Dose: 40 mg Documented by: Tramadol HCl (Ultram) 50 mg PO BID OMAR Stop: 02/14/19 23:55 Last Admin: 01/16/19 08:05 Dose: 50 mg Documented by: Tramadol HCl (Ultram) 50 mg PO Q4H PRN PRN Reason: Pain Stop: 02/14/19 23:55 PG Care Time/CCT Total # of Minutes Spent Total Time Spent with Patient: Total time spent is greater than 50% in coordination of care (as documented) at patient's floor/unit and/or counseling patient: Resident Activity Tracking Resident Involvement: Resident Care Provided Care Provided: Adult [facility]
[2019-01-17 05:47] LABS: Basophils # (auto) 0.02 K/uL (0-0.2); Basophils % (auto) 0.5 %; Eosinophils # (auto) 0.15 K/uL (0-0.5); Eosinophils % (auto) 3.6 %; Hematocrit (blood only) 38.6 % (37-47); Hemoglobin 13.4 g/dL (12.0-16.0); Immature Granulocytes # (auto) 0.01 K/uL (0.00-0.02); Immature Granulocytes % (auto) 0.2 %; Lymphocytes # (auto) 1.67 K/uL (1.2-3.4); Lymphocytes % (auto) 40.6 %; Mean Corpuscular Hemoglobin 28.8 pg (25-34); Mean Corpuscular Hgb Conc 34.7 g/dL (32-36); Mean Platelet Volume 8.4 fL (7.4-10.4); Monocytes # (auto) 0.41 K/uL (0.11-0.59); Neutrophils # (auto) 1.85 K/uL (1.4-6.5); Neutrophils % (auto) 45.1 %; Platelet Count 164 K/uL (130-400); RDW Coefficient of Variation 13.4 % (11.5-14.5); RDW Standard Deviation 40.1 fL (36.4-46.3); Red Blood Count 4.65 M/uL (4.2-5.4); White Blood Count 4.11 K/uL (4.8-10.8)
[2019-01-17 06:22] LABS: Albumin Level 3.2 gm/dl (3.4-5.0); Calcium 9.3 mg/dl (8.5-10.1); Creatinine Clr Calc Pharmacy 58.4 ml/min; Est GFR (African American) 85.8; Potassium 4.1 mmol/L (3.5-5.1)
[2019-01-17 06:26] LABS: Bilirubin,Total 0.7 mg/dl (0.2-1); Globulin 3.3 gm/dl (2.5-4.0); Total Protein 6.5 gm/dl (6.4-8.2)
[2019-01-17] MEDS: TRAMADOL HCL 50 MG TABLET PO SCH (07:56)
--- NOTE | 2019-01-17 16:51 | Discharge Summary ---
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 She had difficulty breathing and took some deep breaths but felt like her diaphragm was kalpesh and she heard pops in her abdomen. A group of students heard the alarm she set off and helped her call 911. At the time of evaluation, her sob had resolved. She was having R flank pain, abdominal pain and L breast region pain. Denies any KRISHNA/dizziness, fever, chills, cp, diarrhea, constipation, nausea, vomiting, dysuria, hematuria, hematochezia. Reports seeing Dr. Dye after 07/2018 admission and as told she has laryngospasm likely triggered by her L vocal cord paralysis. She also had speech therapy this past spring/summer which did not help much. Shx: R nephrectomy, tubal ligation, Tonsillectomy Fhx: Father had Shahana-Danlos and Essie's, 1 sister also has vascular EDS Social Hx: denies alcohol use, tobacco smoke or recreational drug use, hx of 2nd hand tobacco exposure as both parents smoked Admission Exam Per Admitting Provider General: In NAD Neuro: A&O x 4 Pulm: CTAB, equal breath sounds bilaterally CV: RRR, no m/r/g Abdomen:+BS, mild TTP of upper abdomen, non-distended Skin: L breast hematoma, R flank region hematoma LE: no LE edema, no calf TTP Principal Diagnosis Hemorrhage secondary to Shahana-Dahnlos Discharge Exam General: Alert, oriented. No acute distress laying in bed HEENT: NC/AT, PERRLA, EOMI, oropharynx moist. Chest: tender to palpation over right breast. Two patches of bleeding in that area as well. CV: RRR, Normal s1, s2. No murmurs appreciated Resp: Breath sounds clear bilaterally, no increased effort of breathing. No crackles/rhonchi/rales. Abdomen: Soft, diffusely tender but mildly, nondistended. No guarding. No organomegaly appreciated. Extremities: No edema in lower extremities bilaterally. Discharge Data Allergies Allergy/AdvReac Type Severity Reaction Status Date / Time sodium benzoate Allergy Unknown unk Verified 08/17/18 12:32 Consultations 01/15/19 21:54 ED Decision to Admit Stat Ordered Studies 01/15/19 19:18 CT angio abdomen pelvis w con Stat CT angio chest dissec wo/w con Stat Hospital Course (1) Chest wall hematoma: 68yoF with Hx of Shahana-Danlos syndrome, GERD, recurrent laryngospasm and recurrent bleeds who presented with trouble breathing secondary to laryngospasm. Admitted on Jan 16 and discharged on Jan 17 2019. Intraabdominal bleeding -CTA Chest 01/15 showed Multiple sites of infiltration within each upper breast a nd chest wall which suggest small foci of hemorrhage. No active extravasation. The etiology for this hemorrhage is not clear on this exam. Also noted 7 mm groundglass right lower lobe nodule. A follow up chest CT in 6 months to ensure stability is recommended. -CTA Abdomen/Pelvis 01/15 showed 1. Multiple foci of intra-abdominal hemorrhage, including an ill-defined focus, measuring 5.1 cm in extent, within the mesentery for the transverse colon. -Kept NPO and on IV fluids. Pain better next morning. No worsening of bleeding. diet advanced and she tolerated well. -tramadol prn for pain at home dosage SOB -Following with outpt ENT-likely laryngospasm related -currently resolved on discharge -discussed possibility of silent GERD. On omeprazole. Should follow with ENT as outpatient Shahana-Danlos -Follows with Dr. Landa for abd aneurysms. -Per Dr. Landa, no acute intervention. -continue home atenolol and tramadol GERD: -continue home meds Total Time Total Time Spent Total Time Spent (In Minutes): 60 Discharge Plan Discharge Items Patient Disposition: Home - Self-Care Reason For Visit: HEMORRHAGE ABDOMINAL,BREAST AND CHEST WALL Discharge Diagnosis: Hemorrhage secondary to Erlers-Danlos Discharge Goals: Decrease discomfort and Improve function Activity: Per 'Additional Instructions' section Non-emergency contact: Primary Care Provider Call non-emergency contact if: your symptoms worsen and you have a fever Follow-up/Referrals: Ric Heredia MD [Primary Care Provider] - Diet: Heart Healthy Addtl Provider Instructions: Shereen, you were admitted due to multiple bleeds noted on imaging and your inability to breathe due too your laryngospasms. -Please continue with your home pain regimen with tramadol. -Please continue taking your atenolol. -Please followup with your primary doctor, Dr. Mims within a week of discharge. -Please also followup with your vascular surgeon Dr. Landa as scheduled. Prescriptions: Continued tramadol 50 mg tablet 50 mg PO BID RF: 0 atenolol 100 mg tablet 100 mg PO DAILY RF: 0 Stand-Alone Forms: Call Back Authorization, [facility] Discharge Orders: Discharge Order (Routine); Ordered 01/17/19 Ordered By: Nora Louis Admission Data Admit Date/Time: 01/15/19 23:09 Attending Provider: Nora Louis Admit Provider: Tova Irene Primary Care Provider: Ric Heredia Other Providers: Tova Irene Service: Medical Other Interventions: Discharge Summary Assessment (RN) Last Done: 01/17/19 10:53 DC Date/Time DO NOT enter until pt leaves facility: 01/17/19 11:24 Supervising Physician Co-Signing Physician Notes Resident Physician Supervision Note: I independently interviewed and examined the patient and verified the bernabe history and physical, reviewed labs and image studies, discussed the case with the resident Dr. Marie and agree with the findings and care plan. Time spent in discharge 35 min Resident Activity Tracking Resident Involvement: Resident Care Provided Care Provided: Adult Hospital Medicine
== END 2019-01-17 11:24 | disposition home or self-care (01) ==
LOC: 4W 18:58 → ED 18:58 → SUATTDRO 23:09 → 4W 23:33

== ENCOUNTER 2024-09-28 14:51 | Inpatient (IN) ==
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
[2024-09-28 15:36] LABS: iSTAT Creatinine 0.8 mg/dl (0.6-1.3); iSTAT Hemoglobin 13.6 g/dl (12.0-16.0); iSTAT Ionized Calcium 1.25 mmol/l (1.12-1.32); iSTAT Potassium 3.8 mmol/L (3.3-5.0)
[2024-09-28] MEDS: OPTIRAY 320 100ml IV ONE (15:49)
[2024-09-28 15:52] LABS: Basophils # (auto) 0.04 K/uL (0.00-0.20); Basophils % (auto) 0.7 %; Eosinophils # (auto) 0.11 K/uL (0.00-0.50); Eosinophils % (auto) 1.9 %; Hematocrit (blood only) 39.8 % (37.0-47.0); Hemoglobin 13.7 g/dl (12.0-16.0); Immature Granulocytes # (auto) 0.02 K/uL (0.01-0.20); Immature Granulocytes % (auto) 0.3 %; Lymphocytes # (auto) 1.28 K/uL (1.20-3.40); Lymphocytes % (auto) 22.1 %; Mean Corpuscular Hemoglobin 29.3 pg (25.0-34.0); Mean Corpuscular Hgb Conc 34.4 g/dL (32.0-36.0); Monocytes # (auto) 0.35 K/uL (0.11-0.59); Platelet Count 225 K/uL (130-400); RDW Coefficient of Variation 12.1 % (11.5-14.5); RDW Standard Deviation 37.1 fL (36.4-46.3); Red Blood Count 4.68 M/uL (4.20-5.40)
[2024-09-28 16:11] LABS: Albumin Globulin Ratio 1.4 (0.9-2); Albumin Level 4.1 gm/dl (3.4-5.0); BUN Creatinine Ratio 20.3 (10-20); Bilirubin,Total 0.4 mg/dl (0.2-1.0); Calcium 9.5 mg/dl (8.6-10.3); Creatinine Clr Calc Pharmacy 62.6 ml/min; Potassium 3.9 mmol/L (3.5-5.1); Total Protein 7.1 gm/dl (6.0-8.3)
[2024-09-28] MEDS ORDERED: SODIUM CHLORIDE 0.9% 100 ML IV PRN (16:15)
[2024-09-28 16:18] LABS: Troponin I High Sensitivity 11.3 pg/ml (0-14)
[2024-09-28 16:19] LABS: Prothrombin Time 10.9 Seconds (9.0-12.0)
--- NOTE | 2024-09-28 16:20 | Emergency Department Note ---
Impression & Plan Hemoperitoneum, Shahana-Danlos syndrome, Mesenteric bleeding, Chest wall hematoma ED Provider Note NAME: BRANDAN DENSON AGE: 73 SEX: F : 1950 ARRIVES VIA: Ambulance INFORMANT: Patient ED PROVIDER(S): Delfino Dumont DO CHIEF COMPLAINT: Right abdominal and chest wall pain HPI: Patient is a 73-year-old female with a past medical history of Shahana- Danlos who presents to the ER for a laryngeal spasm. Following this patient started noticing pain on her right lateral abdomen with bruising as well as the right chest wall. She denies any headache or change in vision. No dysuria, urgency, or frequency. Pain is focal in the chest and abdomen at the bruising sites. Upon arrival she did not have any pain or bruising of the chest but that has started to occur following CT. ADDITIONAL HISTORY OBTAINED: Per HPI Chronic Medical/Social Conditions Affecting Care: Per HPI PAST MEDICAL HISTORY:See Below PAST SURGICAL HISTORY:See Below FAMILY HISTORY:See Below SOCIAL HISTORY:See Below HOME MEDICATIONS:See Below ALLERGIES:See Below VITALS:See Below PHYSICAL EXAMINATION: GENERAL: Sitting up in bed, alert, mild distress holding her right lower abdomen EYE EXAM: normal conjunctiva. OROPHARYNX: no exudate, no erythema, lips, buccal mucosa, and tongue normal and mucous membranes are moist NECK: supple, no nuchal rigidity, no adenopathy, non-tender CHEST: Bruising over the right upper chest wall and right lower abdomen LUNGS: Clear to auscultation. Normal chest wall mechanics HEART: no murmurs, S1 normal and S2 normal ABDOMEN: abdomen soft, non-tender, normo-active bowel sounds, no masses, no rebound or guarding. UPPER EXTREMITIES: upper extremities are grossly normal. LOWER EXTREMITIES: No pitting edema. NEURO EXAM: Normal sensorium, cranial nerves II-XII grossly intact, normal speech, no gross weakness of arms, no gross weakness of legs. MEDICAL DECISION MAKING: Patient is a 73-year-old female with a past medical history of Shahana-Danlos who presents to the ER with the above-stated complaint. She denies any blood thinners. IV was established and blood work was obtained. Labs show no significant leukocytosis or anemia. INR unremarkable. BMP normal LFTs bilirubin was unremarkable. Troponin was negative. Lipase was normal. UA was clean. Patient was initially typed and crossed following having a CT and on my interpretation showed bleeding intra-abdominal he. Contacted stat read and discussed with the staff to have them have the CT read emergently. He was eventually read. Confirmed this. Discussed with the patient initially patient was agreement with transfer. I spoke with healthcare advisory services manager patient would be best served at [place]. I spoke with the trauma surgeon and at this time I was notified the patient has changed her mind and does not want to be transferred. She wants to be made comfort. She is DNR/DNI. I spoke with the patient at length and she confirms this. She does not want anything done. She knows that if she stays here and continues to bleed she could . She knows we do not have IR available. Patient was updated bedside. She was made comfort measures. She was given IV morphine. She was given TXA IV as well for the intra- abdominal bleeding which was nontraumatic. Case was discussed with the hospitalist for further evaluation management treatment. Consults/Care Managements Discussions: Per [facility] Triage Nursing notes reviewed. Limited review of prior medical records performed Vital Signs: reviewed and remarkable for HTN Differential diagnosis: Cardiac ischemia, aortic dissection, pulmonary embolism, pneumothorax, pneumonia, pericarditis, myocarditis, esophageal rupture, GERD, cholecystitis, pancreatitis, musculoskeletal, as well as other pathologies. ER treatment provided: See below Diagnostics interpreted by me include EKG and cardiac monitoring as listed below: -Cardiac Monitoring: An order was placed for continuous cardiac monitoring. The monitor shows a rate of 80 with sinus rhythm. -ECG: Sinus rhythm rate of 74 Normal axis No PVCs Septal Q waves QTc 432 -Laboratory studies:Interpreted by me as stated above in MDM and shown below. Imaging studies: Xrays: As interpreted by me:none CTs show: CT abdomen pelvis per my preliminary interpretation showed bleeding intra-abdominal he CT of the abdomen pelvis and chest show as described above in [facility] Procedures:none Critical Care: I have personally spent 75 minutes of critical care time in the direct management of this patient. This includes bedside care, interpretation of diagnostic studies, and testing, discussion with consultants, patient, and family members, and other required patient management activities. This 75 minutes is in excess of all separately billable procedures. 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) Chest wall hematoma Mesenteric bleeding (Acute) Bleeding from breast (Acute) Laryngospasm (Acute) Dyspnea Diverticula of colon DVT prophylaxis Shahana-Danlos disease (Acute) Rectus sheath hematoma (Acute) Elevated troponin (Acute) Multiple rib fractures (Acute) Fall from slip, trip, or stumble (Acute) Multiple rib fractures (Acute) Contusion of multiple sites (Acute) Celiac artery aneurysm (Chronic) Chest wall injury (Acute) Chest wall injury (Acute) Acute diverticulitis (Acute) Right foot pain (Acute) Sigmoid diverticulitis (Acute) Superficial thrombosis of left lower extremity (Acute) Medical History History of traumatic rupture of spleen Surgical History History of surgery splenic artery repair History of tubal ligation History of tonsillectomy Family History (Updated 09/28/24 @ 19:24 by Idris Vallejo MD, PhD) Mother , at 59 years of age from COPD with underlying tobacco abuse, and no suspected vascular Shahana-Danlos Syndrome. Hypertension Cancer Heart disease Father , at 59 years of age from ruptured colon in the setting of undiagnosed, but suspected vascular Shahana-Danlos Syndrome (vEDS). Cancer Other No family history of adverse response to anesthesia No family history of bleeding disorder Stomach rupture Social History Smoking Status: Never smoker Second Hand Exposure: No; Do You Dip or Chew Tobacco: No; Hx Alcohol Use: No Hx Substance Use: No Preferred Language: Yemeni Communication Ability: Effective Stock Taker Required: No Beliefs That Will Affect Care: None marital status: Single Current Living Situation: Family Current Living Situation Comment: son current occupational status: retired Feels Safe at Home: Yes Assistive Devices: None Allergies Allergies Allergy/AdvReac Type Severity Reaction Status Date / Time adhesive Allergy Intermediate BLISTERED, Verified 09/28/24 17:32 SKIN PEELING sodium benzoate Allergy Intermediate INJECTION Verified 09/28/24 17:32 SITE--VEINS "BLEW UP" gabapentin AdvReac Intermediate NAUSEA/VOMI Verified 09/28/24 17:33 TING Home Meds Home Medications Medication Instructions Recorded Confirmed tramadol 50 mg tablet 50 mg PO BID PRN Pain 08/17/18 09/28/24 multivitamin 1 tab PO DAILY 02/12/19 09/28/24 atenolol 50 mg tablet 150 mg PO DAILY 04/19/21 09/28/24 diclofenac sodium 1 % topical gel 2 g topical QID PRN JOINT PAIN 06/15/23 09/28/24 ascorbic acid (vitamin C) 1,000 mg 2,000 mg PO DAILY 09/28/24 09/28/24 tablet,extended release (Vitamin C ER) cholecalciferol (vitamin D3) 50 50 mcg PO DAILY 09/28/24 09/28/24 mcg (2,000 unit) capsule (Vitamin D3) magnesium 200 mg tablet 200 mg PO DAILY 09/28/24 09/28/24 Results & Data (ED) Vital Signs Vital Signs - 24 hr 09/28/24 15:01 09/28/24 16:06 09/28/24 16:07 Temperature 36.9 C Temperature Source Oral Pulse Rate 83 71 Pulse Rate [Apical] 75 Pulse Rate from SpO2 Sensor Pulse Rhythm Regular Pulse Strength Normal Respiratory Rate 18 17 Respiratory Effort / Characteristics Non-Labored Respiratory Depth Normal Respiratory Pattern Regular Blood Pressure 163/92 H Blood Pressure [Right Arm] 163/99 H Blood Pressure Mean 115 Blood Pressure Mean [Right Arm] 120 Blood Pressure Position Lying Pulse Oximetry 96 Oxygen Delivery Method Room Air Room Air Sepsis Recent Fever Within 48 Hours No Sepsis New/Unexplained Change in Mental Status N/A Sepsis Action Taken by Nursing No Action Required 09/28/24 16:10 09/28/24 16:54 09/28/24 16:57 Temperature Temperature Source Pulse Rate 79 79 Pulse Rate [Apical] Pulse Rate from SpO2 Sensor 79 80 Pulse Rhythm Pulse Strength Respiratory Rate 19 21 Respiratory Effort / Characteristics Respiratory Depth Respiratory Pattern Blood Pressure Blood Pressure [Right Arm] Blood Pressure Mean Blood Pressure Mean [Right Arm] Blood Pressure Position Pulse Oximetry 94 94 Oxygen Delivery Method Room Air Room Air Room Air Sepsis Recent Fever Within 48 Hours Sepsis New/Unexplained Change in Mental Status Sepsis Action Taken by Nursing 09/28/24 17:00 09/28/24 17:06 09/28/24 17:21 Temperature Temperature Source Pulse Rate 76 81 Pulse Rate [Apical] Pulse Rate from SpO2 Sensor 76 80 Pulse Rhythm Pulse Strength Respiratory Rate 18 21 Respiratory Effort / Characteristics Respiratory Depth Respiratory Pattern Blood Pressure 136/91 Blood Pressure [Right Arm] Blood Pressure Mean 119 Blood Pressure Mean [Right Arm] Blood Pressure Position Pulse Oximetry 95 96 Oxygen Delivery Method Room Air Room Air Sepsis Recent Fever Within 48 Hours Sepsis New/Unexplained Change in Mental Status Sepsis Action Taken by Nursing Laboratory Data 09/28/24 15:00 09/28/24 15:00 Lab Results 09/28/24 09/28/24 09/28/24 Range/Units 15:00 15: 15: WBC 5.80 (4.8-10.8) K/ul RBC 4.68 (4.20-5.40) M/uL Hgb 13.7 (12.0-16.0) g/dl POC Hgb 13.6 (12.0-16.0) g/dl Hct 39.8 (37.0-47.0) % POC Hct 40 (37-47) % MCV 85.0 (80.0-100.0) fL MCH 29.3 (25.0-34.0) pg MCHC 34.4 (32.0-36.0) g/dL RDW Std Deviation 37.1 (36.4-46.3) fL RDW Coeff of Lucero 12.1 (11.5-14.5) % Plt Count 225 (130-400) K/uL MPV 9.0 L (9.4-12.4) fL Immature Gran % (Auto) 0.3 % Neut % (Auto) 69.0 % Lymph % (Auto) 22.1 % [place] % (Auto) 6.0 % Eos % (Auto) 1.9 % Baso % (Auto) 0.7 % Neut # (Auto) 4.00 (1.40-6.50) K/uL Lymph # (Auto) 1.28 (1.20-3.40) K/uL [place] # (Auto) 0.35 (0.11-0.59) K/uL Eos # (Auto) 0.11 (0.00-0.50) K/uL Baso # (Auto) 0.04 (0.00-0.20) K/uL Immature Gran # (Auto) 0.02 (0.01-0.20) K/uL PT 10.9 (9.0-12.0) Seconds INR 1.0 (0.9-1.1) POC Sodium 138 (135-144) mmol/L Sodium 137 (136-145) mmol/L POC Potassium 3.8 (3.3-5.0) mmol/L Potassium 3.9 (3.5-5.1) mmol/L POC Chloride 104 (101-112) mmol/L Chloride 105 (98-107) mmol/L Carbon Dioxide 27 (21-32) mmol/L POC Total CO2 22 L (24-31) mmol/L Anion Gap 5 (3-11) POC Anion Gap 17.0 (16-25) mmol/L POC BUN 16 (7-18) mg/dl BUN 15 (6-23) mg/dl Creatinine 0.74 (0.6-1.2) mg/dl POC Creatinine 0.8 (0.6-1.3) mg/dl Est Cr Clr Drug Dosing 62.6 ml/min eGFR 85.91 BUN/Creatinine Ratio 20.3 H (10-20) Glucose 148 H (70-99(Fasting)) mg/dl POC Glucose (other) 150 H (70-99) mg/dl Calcium 9.5 (8.6-10.3) mg/dl POC Ioniz Calcium Shelbie 1.25 (1.12-1.32) mmol/l Total Bilirubin 0.4 (0.2-1.0) mg/dl AST 25 (13-39) U/L ALT 21 (7-52) U/L Alkaline Phosphatase 77 (34-104) U/L Troponin I High Sens 11.3 (0-14) pg/ml Total Protein 7.1 (6.0-8.3) gm/dl Albumin 4.1 (3.4-5.0) gm/dl Globulin 3.0 (2.5-4.0) gm/dl Albumin/Globulin Ratio 1.4 (0.9-2) Lipase 25 (11-82) U/L Urine Color Urine Appearance (Clear) Urine pH (4.5-7.5) Ur Specific [place] (1.000-1.030) Urine Protein (Negative) Urine Glucose (UA) (Negative) Urine Ketones (Negative) Urine Blood (Negative) Urine Nitrite (Negative) Urine Bilirubin (Negative) Urine Urobilinogen (Negative) Ur Leukocyte Esterase (Negative) Urine WBC (Auto) (0-5) /hpf Urine RBC (Auto) (0-2) /hpf U Hyaline Cast (Auto) (0-2) /lpf U Epithel Cells (Auto) (0-2) /hpf Urine Bacteria (Auto) (None Seen) Blood Type O Positive Antibody Screen NEGATIVE Crossmatch See Detail 09/28/24 Range/Units 16:25 WBC (4.8-10.8) K/ul RBC (4.20-5.40) M/uL Hgb (12.0-16.0) g/dl POC Hgb (12.0-16.0) g/dl Hct (37.0-47.0) % POC Hct (37-47) % MCV (80.0-100.0) fL MCH (25.0-34.0) pg MCHC (32.0-36.0) g/dL RDW Std Deviation (36.4-46.3) fL RDW Coeff of Lucero (11.5-14.5) % Plt Count (130-400) K/uL MPV (9.4-12.4) fL Immature Gran % (Auto) % Neut % (Auto) % Lymph % (Auto) % Glad[place] % (Auto) % Eos % (Auto) % Baso % (Auto) % Neut # (Auto) (1.40-6.50) K/uL Lymph # (Auto) (1.20-3.40) K/uL [place] # (Auto) (0.11-0.59) K/uL Eos # (Auto) (0.00-0.50) K/uL Baso # (Auto) (0.00-0.20) K/uL Immature Gran # (Auto) (0.01-0.20) K/uL PT (9.0-12.0) Seconds INR (0.9-1.1) POC Sodium (135-144) mmol/L Sodium (136-145) mmol/L POC Potassium (3.3-5.0) mmol/L Potassium (3.5-5.1) mmol/L POC Chloride (101-112) mmol/L Chloride (98-107) mmol/L Carbon Dioxide (21-32) mmol/L POC Total CO2 (24-31) mmol/L Anion Gap (3-11) POC Anion Gap (16-25) mmol/L POC BUN (7-18) mg/dl BUN (6-23) mg/dl Creatinine (0.6-1.2) mg/dl POC Creatinine (0.6-1.3) mg/dl Est Cr Clr Drug Dosing ml/min eGFR BUN/Creatinine Ratio (10-20) Glucose (70-99(Fasting)) mg/dl POC Glucose (other) (70-99) mg/dl Calcium (8.6-10.3) mg/dl POC Ioniz Calcium Shelbie (1.12-1.32) mmol/l Total Bilirubin (0.2-1.0) mg/dl AST (13-39) U/L ALT (7-52) U/L Alkaline Phosphatase (34-104) U/L Troponin I High Sens (0-14) pg/ml Total Protein (6.0-8.3) gm/dl Albumin (3.4-5.0) gm/dl Globulin (2.5-4.0) gm/dl Albumin/Globulin Ratio (0.9-2) Lipase (11-82) U/L Urine Color Yellow Urine Appearance Clear (Clear) Urine pH 5.5 (4.5-7.5) Ur Specific [place] 1.029 (1.000-1.030) Urine Protein Negative (Negative) Urine Glucose (UA) Negative (Negative) Urine Ketones Negative (Negative) Urine Blood Trace H (Negative) Urine Nitrite Negative (Negative) Urine Bilirubin Negative (Negative) Urine Urobilinogen Negative (Negative) Ur Leukocyte Esterase Negative (Negative) Urine WBC (Auto) 0-5 (0-5) /hpf Urine RBC (Auto) 0-2 (0-2) /hpf U Hyaline Cast (Auto) 0-2 (0-2) /lpf U Epithel Cells (Auto) 0-2 (0-2) /hpf Urine Bacteria (Auto) None Seen (None Seen) Blood Type Antibody Screen Crossmatch Administered Medications Ascorbic Acid (Ascorbic Acid 500 Mg Tab) 2,000 mg PO DAILY OMAR Stop: 10/28/24 18:29 Last Admin: 09/28/24 18:43 Dose: Not Given Documented By: AAH Morphine Sulfate (Morphine Sulfate 4 Mg/Ml 1 Ml Carp\\Vial) 4 mg IV Q1H PRN PRN Reason: Pain Stop: 10/12/24 17:23 Last Admin: 09/28/24 18:45 Dose: 4 mg Documented By: BHANU Discontinued Medications Sodium Chloride (Nss) 1,000 mls @ 999 mls/hr IV .Q1H1M ONE Stop: 09/28/24 17:15 Last Infusion: 09/28/24 18:41 Dose: Infused Documented By: Admin: 09/28/24 16:24 Dose: 999 mls/hr Documented By: LUIS ALBERTO Tranexamic Acid (Tranexamic Acid / 0.7% Nacl) 1,000 mg in 100 mls @ 600 mls/hr IV NOW STA Stop: 09/28/24 16:55 Last Infusion: 09/28/24 17:12 Dose: Infused Documented By: LUIS ALBERTO Admin: 09/28/24 17:01 Dose: 600 mls/hr Documented By: LUIS ALBERTO Ioversol (Optiray 320 100ml) 93 ml IV ONCE ONE Stop: 09/28/24 15:49 Last Admin: 09/28/24 15:49 Dose: 93 ml Documented By: MAYUR Morphine Sulfate (Morphine Sulfate 4 Mg/Ml 1 Ml Carp\\Vial) 4 mg IV NOW STA Stop: 09/28/24 16:15 Last Admin: 09/28/24 16:22 Dose: 4 mg Documented By: LUIS ALBERTO Ondansetron HCl (Ondansetron Inj 2 Mg/Ml 2 Ml Vial) 4 mg IV NOW STA Stop: 09/28/24 16:16 Last Admin: 09/28/24 16:22 Dose: 4 mg Documented By: LUIS ALBERTO Imaging Data Radiologist's Impression: Abdomen/Pelvis CT 09/28/24 15:34 EXAMINATION: CT of the abdomen and pelvis performed after the administration of IV contrast TECHNIQUE: Helical CT images from the lung bases through the symphysis pubis were obtained with contrast. Coronal and sagittal reformatted images were generated at a workstation for further assessment. Dose reduction techniques were achieved by using automatic exposure control and/or adjustment of mA and/or kV according to patient size and/or use of iterative reconstruction technique. COMPARISON: 03/05/2019 HISTORY: Abdominal pain FINDINGS: Lower chest: No consolidation. No pleural effusion or pneumothorax. Liver: No suspicious liver lesions. Portal veins appear patent. Gallbladder: Cholecystectomy. Spleen: Normal size. Calcified splenic artery aneurysms are again seen. Pancreas: No suspicious pancreatic lesions. The pancreatic duct is not dilated. Adrenal glands: No adrenal nodules. Kidneys: No hydronephrosis or obstructing renal stones. Bladder / Pelvic organs: Unremarkable. Bowel: No bowel obstruction. No abnormal bowel wall thickening. The appendix is unremarkable. Lymph nodes: No retroperitoneal, mesenteric, or pelvic lymphadenopathy. Peritoneum / Retroperitoneum: No free air. Within the anterior right upper quadrant, anterior to the stomach, there is an area of thickened stranding, having the appearance of blood products, and within the center of this region on series 3 image 102, are a few prominently enhancing vessels. From this region, there is mild blood products stranding laterally, and collecting into the right paracolic gutter. A small volume of fluid at the inferior pelvis at the midline, image 241, favors blood products. There are a few scattered smaller additional areas of stranding in the left upper quadrant of the abdomen, favoring mesenteric bleeding, as had also been seen in a few separate sites on examinations from 2019. Vessels: No infrarenal aortic aneurysm. Bones and soft tissues: No suspicious lesion in the bones. IMPRESSION: A focal area of mesenteric bleeding is seen in the anterior right upper quadrant, anterior to the stomach, centered around an area of prominently enhancing vessels, likely which represent the site of bleeding, otherwise without visualized active extravasation. Mild blood products extends into the right lateral mesentery, and collects in the right paracolic gutter, as well as inferiorly within the pelvis. An additional, more mild area of mesenteric bleeding can also be seen in the left upper quadrant. Similar findings were noted on examinations in 2019. Electronically signed by Suleiman Oh 09-28-2024 4:[address] 09/28/24 16:13 CT chest without contrast History: Chest wall bruising Comparison: 11/24/2022 Technique: Helical CT imaging of the chest performed without IV contrast Dose reduction techniques were achieved by using automatic exposure control and/or adjustment of mA and/or kV according to patient size and/or use of iterative reconstruction technique. Findings: No focal consolidation. No pleural effusion. No pneumothorax. There is scattered small pulmonary nodules, which are not significantly changed since at least November 2022, for example in the superior segment left lower lobe on axial image 27, measuring 5 mm, and are statistically benign. Heart size is normal. There are moderate to heavy coronary calcifications. The thoracic aorta is normal in size. The pulmonary artery is normal in size. No significant pericardial effusion. No suspicious lymphadenopathy in the chest. The central airway is clear. Limited visualized upper abdomen. 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 No acute bony abnormalities. Within the right lateral chest wall, which is incompletely within the field of view, there is a soft tissue hematoma, series 2 image 28, measuring 47 x 38 mm, surrounded by extensive stranding blood products. Impression: Right lateral chest wall subcutaneous hematoma with surrounding blood products. Electronically signed by Suleiman Oh 09-28-2024 5:41 PM Discharge Plan Visit Data Chief Complaint: Abdominal Pain Stated Complaint: R UPPPER AB PAIN ED Provider: Delfino Dumont Discharge Problem: Hemoperitoneum, Shahana-Danlos syndrome, Mesenteric bleeding, Chest wall hematoma Patient Disposition: Admitted As Inpatient Condition: Fair Discharge Instructions Interventions: ED Discharge Assessment Last Done: 09/28/24 18:10 Discharge Problem: Chest wall hematoma Qualifiers: Encounter type: initial encounter Laterality: right Qualified Code(s): S20.211A - Contusion of right front wall of thorax, initial encounter
[2024-09-28] MEDS: MoRPHine SULFATE 4 MG/ML 1 ML CARP\\VIAL IV STA (16:22)
[2024-09-28] MEDS: ONDANSETRON INJ 2 MG/ML 2 ML VIAL IV STA (16:22)
[2024-09-28] MEDS: SODIUM CHLORIDE 0.9% 1,000 ML IV ONE (16:24)
--- NOTE | 2024-09-28 16:32 | CT Scan Report ---
EXAMINATION: CT of the abdomen and pelvis performed after the administration of IV contrast TECHNIQUE: Helical CT images from the lung bases through the symphysis pubis were obtained with contrast. Coronal and sagittal reformatted images were generated at a workstation for further assessment. Dose reduction techniques were achieved by using automatic exposure control and/or adjustment of mA and/or kV according to patient size and/or use of iterative reconstruction technique. COMPARISON: 03/05/2019 HISTORY: Abdominal pain FINDINGS: Lower chest: No consolidation. No pleural effusion or pneumothorax. Liver: No suspicious liver lesions. Portal veins appear patent. Gallbladder: Cholecystectomy. Spleen: Normal size. Calcified splenic artery aneurysms are again seen. Pancreas: No suspicious pancreatic lesions. The pancreatic duct is not dilated. Adrenal glands: No adrenal nodules. Kidneys: No hydronephrosis or obstructing renal stones. Bladder / Pelvic organs: Unremarkable. Bowel: No bowel obstruction. No abnormal bowel wall thickening. The appendix is unremarkable. Lymph nodes: No retroperitoneal, mesenteric, or pelvic lymphadenopathy. Peritoneum / Retroperitoneum: No free air. Within the anterior right upper quadrant, anterior to the stomach, there is an area of thickened stranding, having the appearance of blood products, and within the center of this region on series 3 image 102, are a few prominently enhancing vessels. From this region, there is mild blood products stranding laterally, and collecting into the right paracolic gutter. A small volume of fluid at the inferior pelvis at the midline, image 241, favors blood products. There are a few scattered smaller additional areas of stranding in the left upper quadrant of the abdomen, favoring mesenteric bleeding, as had also been seen in a few separate sites on examinations from 2019. Vessels: No infrarenal aortic aneurysm. Bones and soft tissues: No suspicious lesion in the bones. IMPRESSION: A focal area of mesenteric bleeding is seen in the anterior right upper quadrant, anterior to the stomach, centered around an area of prominently enhancing vessels, likely which represent the site of bleeding, otherwise without visualized active extravasation. Mild blood products extends into the right lateral mesentery, and collects in the right paracolic gutter, as well as inferiorly within the pelvis. An additional, more mild area of mesenteric bleeding can also be seen in the left upper quadrant. Similar findings were noted on examinations in 2019. Electronically signed by Suleiman Oh 09-28-2024 4:31 PM
[2024-09-28 16:45] LABS: Appearance Urine Clear (Clear); Bacteria Urine Automated None Seen (None Seen); Bilirubin Urine Negative (Negative); Blood Urine Trace (Negative); Cast Urine Automated 0-2 /lpf (0-2); Color Urine Yellow; Epithelial Cell Urine Auto 0-2 /hpf (0-2); Glucose Urine UA Negative (Negative); Ketones Urine Negative (Negative); Leukocyte Esterase Urine Negative (Negative); Nitrite Urine Negative (Negative); Protein Urine Negative (Negative); RBC Urine Automated 0-2 /hpf (0-2); Specific Gravity Urine 1.029 (1.000-1.030); Urobilinogen Urine Negative (Negative); WBC Urine Automated 0-5 /hpf (0-5); pH Urine 5.5 (4.5-7.5)
[2024-09-28] MEDS: TRANEXAMIC ACID / 0.7% NACL 1,000 MG/100 ML BAG IV STA (17:01)
[2024-09-28] MEDS ORDERED: ACETAMINOPHEN 325 MG TAB PO PRN (17:24)
--- NOTE | 2024-09-28 17:41 | CT Scan Report ---
CT chest without contrast History: Chest wall bruising Comparison: 11/24/2022 Technique: Helical CT imaging of the chest performed without IV contrast Dose reduction techniques were achieved by using automatic exposure control and/or adjustment of mA and/or kV according to patient size and/or use of iterative reconstruction technique. Findings: No focal consolidation. No pleural effusion. No pneumothorax. There is scattered small pulmonary nodules, which are not significantly changed since at least November 2022, for example in the superior segment left lower lobe on axial image 27, measuring 5 mm, and are statistically benign. Heart size is normal. There are moderate to heavy coronary calcifications. The thoracic aorta is normal in size. The pulmonary artery is normal in size. No significant pericardial effusion. No suspicious lymphadenopathy in the chest. The central airway is clear. Limited visualized upper abdomen. 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 No acute bony abnormalities. Within the right lateral chest wall, which is incompletely within the field of view, there is a soft tissue hematoma, series 2 image 28, measuring 47 x 38 mm, surrounded by extensive stranding blood products. Impression: Right lateral chest wall subcutaneous hematoma with surrounding blood products. Electronically signed by Suleiman Oh 09-28-2024 5:41 PM
[2024-09-28 18:02] VITALS: O2SAT 96
[2024-09-28] MEDS: ASCORBIC ACID 500 MG TAB PO SCH (18:43)
[2024-09-28] MEDS: MoRPHine SULFATE 4 MG/ML 1 ML CARP\\VIAL IV PRN (18:45)
--- NOTE | 2024-09-28 19:01 | History & Physical Report ---
Date of Service September 28, 2024 Assessment & Plan (1) Mesenteric bleeding: Plan: See Plan below for details. (2) Chest wall hematoma: Plan: See Plan below for details. (3) DNR (do not resuscitate): Plan: See Plan below for details. 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, where I saw a cleaner assistant and got a biopsy and a diagnosis of vascular Shahana-Danlos Syndrome (vEDS), so even though I take 1600 mg of vitamin C to promote collagen synthesis, I don't have enough collagen, and it's the faulty kind, so my blood vessels still rupture and my organs bleed very very easily like planting bulbs in my garden, or the time I fell down in my yard 4 years ago, and I came to [facility] ER, and my spleen ruptured, so I flew by helicopter to [facility], and their Vascular Surgeon Dr. James Oh saved my life. I also see the Chief of Vascular Surgery at [facility], Dr. Favio Ferreira III, for my vascular Shahana-Danlos Syndrome (vEDS), but he can't do much for me, other than recommend vitamin C (to promote collagen formation) and beta blockers to keep my blood pressure low so there is less stress on my blood vessel agustin, so they don't blow out. There's a beta shi called celiprolol, that's available in [place] and many other countries for many many years now, but not here in the [place] and a lot of vascular surgeons and rheumatologists in the [place] would like to prescribe this celiprolol for their patients with vascular Shahana-Danlos Syndrome (vEDS), because it's better at preventing vascular rupture/dissection than the metoprolol or atenolol or carvedilol that we have here in the [place] Anyways, I am here in [facility] ER, today (09/28/2024), and the ER doc said that I am bleeding in ternally in my gut (e.g., "A focal area of mesenteric bleeding is seen in the anterior right upper quadrant, anterior to the stomach, centered around an area of prominently enhancing vessels, likely which represent the site of bleeding, otherwise without visualized active extravasation. Mild blood products extends into the right lateral mesentery, and collects in the right paracolic gutter, as well as inferiorly within the pelvis. An additional, more mild area of mesenteric bleeding can also be seen in the left upper quadrant." (as noted on 09/28/2024, 3:34pm CT abd/pelvis with IV contrast)), and I also have a big bruise just below my right armpit that just developed here in [facility] ER after I got the IV contrast for the CAT scan of my abdomen/pelvis today (09/28/2024, 3:34pm), and a CAT scan of my chest (09/28/2024, 4:13pm) confirmed that I am bleeding (e.g., "Right lateral chest wall subcutaneous hematoma with surrounding blood products." (as noted on 09/28/2024, 4:13pm CTA chest)). The ER doc asked me if I want to go to [facility] or do anything about my bleeding and I told him no. I want to stay at [facility] and be made comfortable. 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, and I am sick of fighting this vascular Shahana-Danlos Syndrome (vEDS), an autosomal dominant disease that took my dad away at 59 years of age, and his dad (my paternal grandfather) at 64 years of age, along with 2 female cousins in their early 30s, 2 uncles in their 60s, and 3 babies with premature rupture of membranes, and my 40 years old son has it too, along with a right club foot and both his iliac arteries dissected, but his aorta didn't, and my 50 years old daughter has it just as bad as her brother, and her pancreas just stopped working, I think because of the steroids she received to treat her collapsed lung recently. Vascular Shahana-Danlos Syndrome (vEDS) is rare (e.g., prevalence of 1 per 50,000 to 1 per 200,000 worldwide) and we are zebras, rare and incurable. I do not want to be poked or prodded anymore; I just want to be comfortable. I have already made arrangements to have my body donated to [employer] for research into vascular Shahana-Danlos (vEDS), and then when they are done researching my body, my body will go to [facility] ([place], [place]). Everyone here at [facility] has been wonderful to me all these decades, and I am tired of all these ER / hospital visits. I have had enough. If you can get some Gatorade and a bed upstairs, I will be satisfied. Thank you very much, Dr. Vargas." Patient was subsequently admitted to the inpatient hospitalist service @ [facility] ER on 09/28/2024 with the following diagnoses: 1. Acute mesenteric RUQ/LUQ bleed (as noted on 09/28/2024, 3:34pm CT abd/pelvis with IV contrast). 2. Acute right lateral chest wall subcutaneous hematoma (as noted on 09/28/2024, 4:13pm CT chest with IV contrast). To address #1, and #2, patient does not want any further testing/evaluation/intervention. While patient did receive tranexamic acid 1,000mg IV x 1 dose (09/28/2024, 4:47pm) and 1 liter of 0.9% NS @ 999 mL/hr (09/28/2024, 4:24pm) in [facility] ER bed #B04B, patient does not wish to receive anything more and has requested that patient's DNR/DNI code status @ home be revised to DNR/DNI/comfort measures only utilizing tylenol 650mg PO q6 prn pain 1-3, headache, temp > 100.4 degrees Fahrenheit and morphine 4mg IV q1 prn pain 4-10, shortness of breath, anxiety, agitation, or panic. Patient awaits formal Hospice Service evaluation in the 09/29/2024 am to expedite hospital disposition while patient remains in [facility]. History of Present Illness Chief Complaint: "I was watching TV at home in my living room today (09/28/2024, 1:30pm) and then I had laryngospasm for about 30 minutes, and then I felt/heard a "pop" in my right side, below my right breast and going across my belly, so I knew that I was bleeding again, and so I came to [facility] ER." Primary Care Provider: Stormy Malone 73 years old female with PMH of DNR/DNI @ home with 2 roommates and a 13 years old service dog named Estuardo, whose only job is to alert passers-by for help, by howling incessantly upon noting patient's non-verbal state during laryngospasm(s), which frequently leads to vascular rupture and/or internal organ bleeding due to patient's underlying congenital, vascular Shahana-Danlos Syndrome (vEDS), 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, where I saw a cleaner assistant and got a biopsy and a diagnosis of vascular Shahana-Danlos Syndrome (vEDS), so even though I take 1600 mg of vitamin C to promote collagen synthesis, I don't have enough collagen, and it's the faulty kind, so my blood vessels still rupture and my organs bleed very very easily like planting bulbs in my garden, or the time I fell down in my yard 4 years ago, and I came to [facility] ER, and my spleen ruptured, so I flew by helicopter to [facility], and their Vascular Surgeon Dr. James Oh saved my life. I also see the Chief of Vascular Surgery at [facility], Dr. Favio Ferreira III, for my vascular Shahana-Danlos Syndrome (vEDS), but he can't do much for me, other than recommend vitamin C (to promote collagen formation) and beta blockers to keep my blood pressure low so there is less stress on my blood vessel agustin, so they don't blow out. There's a beta shi called celiprolol, that's available in [place] and many other countries for many many years now, but not here in the [place] and a lot of vascular surgeons and r heumatologists in the [place] would like to prescribe this celiprolol for their patients with vascular Shahana-Danlos Syndrome (vEDS), because it's better at preventing vascular rupture/dissection than the metoprolol or atenolol or carvedilol that we have here in the [place] Anyways, I am here in [facility] ER, today (09/28/2024), and the ER doc said that I am bleeding internally in my gut (e.g., "A focal area of mesenteric bleeding is seen in the anterior right upper quadrant, anterior to the stomach, centered around an area of prominently enhancing vessels, likely which represent the site of bleeding, otherwise without visualized active extravasation. Mild blood products extends into the right lateral mesentery, and collects in the right paracolic gutter, as well as inferiorly within the pelvis. An additional, more mild area of mesenteric bleeding can also be seen in the left upper quadrant." (as noted on 09/28/2024, 3:34pm CT abd/pelvis with IV contrast)), and I also have a big bruise just below my right armpit that just developed here in [facility] ER after I got the IV contrast for the CAT scan of my abdomen/pelvis today (09/28/2024, 3:34pm), and a CAT scan of my chest (09/28/2024, 4:13pm) confirmed that I am bleeding (e.g., "Right lateral chest wall subcutaneous hematoma with surrounding blood products." (as noted on 09/28/2024, 4:13pm CTA chest)). The ER doc asked me if I want to go to [facility] or do anything about my bleeding and I told him no. I want to stay at [facility] and be made comfortable. 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, and I am sick of fighting this vascular Shahana-Danlos Syndrome (vEDS), an autosomal dominant disease that took my dad away at 60 years of age, and his dad (my paternal grandfather) at 64 years of age, along with 2 female cousins in their early 30s, 2 uncles in their 60s, and 3 babies with premature rupture of membranes, and my 40 years old son has it too, along with a right club foot and both his iliac arteries dissected, but his aorta didn't, and my 50 years old daughter has it just as bad as her brother, and her pancreas just stopped working, I think because of the steroids she received to treat her collapsed lung recently. Vascular Shahana-Danlos Syndrome (vEDS) is rare (e.g., prevalence of 1 per 50,000 to 1 per 200,000 worldwide) and we are zebras, rare and incurable. I do not want to be poked or prodded anymore; I just want to be comfortable. I have already made arrangements to have my body donated to [facility] for research into vascular Shahana-Danlos (vEDS), and then when they are done researching my body, my body will go to [facility] ([place], [place]). Everyone here at [facility] has been wonderful to me all these decades, and I am tired of all these ER / hospital visits. I have had enough. If you can get some Gatorade and a bed upstairs, I will be satisfied. Thank you very much, Dr. Vargas." Patient denies antecedent/coincident fevers, chills, diaphoresis, shortness of breath, dyspnea on exertion, cough, wheeze, sore throat, hemoptysis, chest pains, palpitations, pleurisy, nausea, vomiting, diarrhea, pelvic pain, flank pain, back pain, shoulder pain, hematemesis, hematochezia, melena, hematuria, dysuria, frequency, urgency, headaches, dizziness, lightheadedness, visual changes, hearing changes, weakness, falls, syncope, travel history, sick contacts, food/drug ingestions novel or new, anosmia, ageusia, hypogeusia, myalgias, arthralgias, rhinorrhea, or otorrhea. All other review of systems are reported as negative by the patient on admission date 09/28/2024. In [facility] ER bed #B04B, patient was afebrile @ 36.9 degrees Celsius, HR 83, RR 18, O2 sat 96% on room air, and BP 163/92 (09/28/2024, 3:01pm). Exam was noted for a right lateral infra-axillary, chest wall hematoma with induration and slight tenderness, which the patient reported was not present when patient arrived at [facility] ER (09/28/2024, 3:01pm). The remainder of patient's exam was unremarkable. Labs in [facility] ER bed #B04B included: WBC 5.80, N69 L22 M6 E2 B1, Hb 13.7, MCV 85.0, MCHC 34.4, platelet 225 (09/28/2024, 3:00pm). INR 1.0 (09/28/2024, 3:00pm). Na 137, K 3.9, BUN 15, creatinine 0.74, glucose 148, Ca 9.5, AST 25, ALT 21, ALK PHOS 77, TBili 0.4 (09/28/2024, 3:00pm). U/A: clear yellow, trace blood, RBC 0-2, LE-, nitrite-, WBC 0-5, epithelial cells 0-2, bacteria 0 (09/28/2024, 4:25pm). Additional testing in [facility] ER bed #B04B included: CT abd/pelvis with IV contrast (09/28/2024, 3:34pm): 1. A focal area of mesenteric bleeding is seen in the anterior right upper quadrant, anterior to the stomach, centered around an area of prominently enhancing vessels, likely which represent the site of bleeding, otherwise without visualized active extravasation. Mild blood products extends into the right lateral mesentery, and collects in the right paracolic gutter, as well as inferiorly within the pelvis. 2. An additional, more mild area of mesenteric bleeding can also be seen in the left upper quadrant. 3. 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 CT chest with IV contrast (09/28/2024, 4:13pm): 1. Right lateral chest wall subcutaneous hematoma with surrounding blood products. Patient was subsequently admitted to the inpatient hospitalist service @ [facility] ER on 09/28/2024 with the following diagnoses: 1. Acute mesenteric RUQ/LUQ bleed (as noted on 09/28/2024, 3:34pm CT abd/pelvis with IV contrast). 2. Acute right lateral chest wall subcutaneous hematoma (as noted on 09/28/2024, 4:13pm CT chest with IV contrast). To address #1, and #2, patient does not want any further testing/evaluation/intervention. While patient did receive tranexamic acid 1,000mg IV x 1 dose (09/28/2024, 4:47pm) and 1 liter of 0.9% NS @ 999 mL/hr (09/28/2024, 4:24pm) in [facility] ER bed #B04B, patient does not wish to receive anything more and has requested that patient's DNR/DNI code status @ home be revised to DNR/DNI/comfort measures only utilizing tylenol 650mg PO q6 prn pain 1-3, headache, temp > 100.4 degrees Fahrenheit and morphine 4mg IV q1 prn pain 4-10, shortness of breath, anxiety, agitation, or panic. Patient awaits formal Hospice Service evaluation in the 09/29/2024 am to expedite hospital disposition while patient remains in [facility]. Allergies Allergy/AdvReac Type Severity Reaction Status Date / Time adhesive Allergy Intermediate BLISTERED, Verified 09/28/24 17:32 SKIN PEELING sodium benzoate Allergy Intermediate INJECTION Verified 09/28/24 17:32 SITE--VEINS "BLEW UP" gabapentin AdvReac Intermediate NAUSEA/VOMI Verified 09/28/24 17:33 TING Home Medications Medication Instructions Recorded Confirmed Type tramadol 50 mg tablet 50 mg PO BID PRN Pain 08/17/18 09/28/24 History multivitamin 1 tab PO DAILY 02/12/19 09/28/24 History atenolol 50 mg tablet 150 mg PO DAILY 04/19/21 09/28/24 History diclofenac sodium 1 % topical gel 2 g topical QID PRN JOINT PAIN 06/15/23 09/28/24 History ascorbic acid (vitamin C) 1,000 mg 2,000 mg PO DAILY 09/28/24 09/28/24 History tablet,extended release (Vitamin C ER) cholecalciferol (vitamin D3) 50 50 mcg PO DAILY 09/28/24 09/28/24 History mcg (2,000 unit) capsule (Vitamin D3) magnesium 200 mg tablet 200 mg PO DAILY 09/28/24 09/28/24 History Past Med/Surg History Problem List (Updated 09/28/24 @ 19:31 by Idris Vallejo MD, PhD) DNR (do not resuscitate) 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) Chest wall hematoma Mesenteric bleeding (Acute) Bleeding from breast (Acute) Laryngospasm (Acute) Dyspnea Diverticula of colon DVT prophylaxis Shahana-Danlos disease (Acute) Rectus sheath hematoma (Acute) Elevated troponin (Acute) Multiple rib fractures (Acute) Fall from slip, trip, or stumble (Acute) Multiple rib fractures (Acute) Contusion of multiple sites (Acute) Celiac artery aneurysm (Chronic) Chest wall injury (Acute) Chest wall injury (Acute) Acute diverticulitis (Acute) Right foot pain (Acute) Sigmoid diverticulitis (Acute) Superficial thrombosis of left lower extremity (Acute) Medical History History of traumatic rupture of spleen Surgical History History of surgery splenic artery repair History of tubal ligation History of tonsillectomy Family History Mother , at 59 years of age from COPD with underlying tobacco abuse, and no suspected vascular Shahana-Danlos Syndrome. Hypertension Cancer Heart disease Father , at 59 years of age from ruptured colon in the setting of undiagnosed, but suspected vascular Shahana-Danlos Syndrome (vEDS). Cancer Other No family history of adverse response to anesthesia No family history of bleeding disorder Stomach rupture Social History Smoking Status: Never smoker Second Hand Exposure: No; Do You Dip or Chew Tobacco: No; Hx Alcohol Use: No Hx Substance Use: No Preferred Language: [place]uran Communication Ability: Effective Striping Machine Operator Required: No Beliefs That Will Affect Care: None marital status: Single Current Living Situation: Family Current Living Situation Comment: son current occupational status: retired Feels Safe at Home: Yes Assistive Devices: None Immunizations: NOT Immunization Record: [employer], [employer]. 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 to first for 3 years before divorce; together, they have no children living or . to second for 15 years before divorce; together, they have 50 years old daughter with vascular Shahana-Danlos Syndrome (vEDS) and exocrine pancreatic insufficiency. to third for 3 years before divorce; together, they have 40 years old son with vascular Shahana-Danlos Syndrome (vEDS) and right club foot and bilateral iliac artery dissection, but no aortic dissection. Patient lives in her own home with 2 roommates and a 13 years old service dog named Estuardo, whose only job is to alert passers-by for help, by howling incessantly upon noting patient's non-verbal state during laryngospasm(s), which frequently leads to vascular rupture and/or internal organ bleeding due to patient's underlying congenital, vascular Shahana-Danlos Syndrome (vEDS) Review of Systems Constitutional: As above in the History of Present Illness. Physical Exam Constitutional: General: Comfortable, coherent, cooperative. Wide awake and alert. Not confused, lethargic, or obtunded. Patient speaks in complete, fluent, and articulate sentences without pause, cough, or wheeze, with O2 sat 96% on room air (09/28/2024, 3:01pm). HEENT: Normocephalic, atraumatic. Extra-ocular muscles intact. Pupils equally round and reactive to light. No nystagmus, gaze paresis, anisocoria, miosis, mydriasis, hyphema, scleral injection, conjunctivitis, or pterygium. No otorrhea or rhinorrhea. No pharyngeal erythema, edema, or discharge. Neck: Supple, no stridor, bruit, goiter, or hepato-jugular reflux. Jugular venous pressure is estimated to be 3 cm above the sternal angle of Rinku, which in turn, is 5 cm above the level of the right atrium; with jugular venous pressure estimated to be 8 cm, then, there is no jugular venous distention on 09/27/2024. Lymphatics: No cervical (anterior/posterior), supraclavicular, infraclavicular, axillary, epitrochlear, or inguinal adenopathy. Chest: Symmetric rise and fall with respirations. Non-tender to palpation. Lungs: Clear to auscultation and percussion. No audible expiratory wheeze, egophony, pectoriloquy, increase in tactile fremitus, or flatness/dullness to percussion at the bases. Heart: Regular rate and rhythm. S1 and S2 noted. No S3 or S4 summation gallop. No tripartite friction rub. Grade II/ early systolic murmur @ LLSB without radiation to the carotids, axilla, or back, and which remains invariant in regards to the respiratory cycle. Abdomen: Soft, non-tender, non-distended. No rebound, guarding, Benitez's sign, or organomegaly. Bowel sounds auscultated in all 4 quadrants. Extremities: No clubbing, cyanosis. 2+ pedal pulses bilaterally. Skin: No decubitus ulcer or enanthem. Skin: Right lateral infra-axillary, chest wall hematoma with induration and slight tenderness, which the patient reported was not present when patient arrived at [facility] ER (09/28/2024, 3:01pm). Genito-urinary: No urethral discharge. No mayen catheter. Neurology: Alert and oriented in regards to person, place, time, and situation. DTR+ and symmetric. 5/5 motor strength in all 4 extremities, both proximally and distally. No pronator drift. No facial droop. No dysarthria. Psychiatry: No homicidal ideation. No suicidal ideation. No flat affect; smiles appropriately Results & Data Results & Data Vital Signs (Past 12 Hours) Vital Signs Temp Pulse Pulse Resp BP BP Pulse Ox 09/28/24 18:10 09/28/24 18:00 77 16 09/28/24 18:00 125/92 09/28/24 17:36 85 23 09/28/24 17:31 121/71 09/28/24 17:21 81 21 96 09/28/24 17:06 76 18 95 09/28/24 17:00 136/91 09/28/24 16:57 79 21 94 09/28/24 16:54 79 19 94 09/28/24 16:10 09/28/24 16:07 75 17 163/99 H 09/28/24 16:06 71 09/28/24 15:01 36.9 C 83 18 163/92 H 96 O2 Del Method 09/28/24 18:10 Room Air 09/28/24 18:00 09/28/24 18:00 09/28/24 17:36 09/28/24 17:31 09/28/24 17:21 Room Air 09/28/24 17:06 Room Air 09/28/24 17:00 09/28/24 16:57 Room Air 09/28/24 16:54 Room Air 09/28/24 16:10 Room Air 09/28/24 16:07 Room Air 09/28/24 16:06 09/28/24 15:01 Room Air Laboratory Results As above in the History of Present Illness. Diagnostic Findings As above in the History of Present Illness. Medications Administered As above in the History of Present Illness. Code Status & VTE Plan VTE Prophylaxis Plan VTE Prophylaxis will be ordered: No PG Care Time/CCT Total # of Minutes Spent Total Time Spent with Patient: Total time spent is greater than 50% in coordination of care (as documented) at patient's floor/unit and/or counseling patient: Coding Level of Care Code 23765 INT INP/OBS CARE 2/55MIN Diagnoses Mesenteric bleeding K66.1 Chest wall hematoma S20.219A DNR (do not resuscitate) Z66
[2024-09-28] MEDS: traMADol HCL 50 MG TABLET PO PRN (23:27)
[2024-09-28] MEDS: ATENOLOL 50 MG TABLET PO SCH (23:27)
[2024-09-29 07:55] VITALS: BP 92/55; PULSE 63; RESP 18; TEMP 97.9
[2024-09-29] MEDS ORDERED: ATENOLOL 50 MG TABLET PO SCH (09:00)
--- NOTE | 2024-09-29 12:37 | Discharge Summary ---
Discharge Summary Date of Service September 29, 2024 Principal Dx & Hospital Course #1 = Principal Diagnosis (1) Mesenteric bleeding: See Plan below for details. (2) Chest wall hematoma: See Plan below for details. (3) DNR (do not resuscitate): See Plan below for details. 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 the COL3A1 gene, which encodes the alpha 1 chain of type III collagen, which is an integral/structural component of the extracellular matrix of all blood vessels and organs, and was first diagnosed in this patient @ 31 years of age when "my kidneys ruptured and no one knew why my kidneys ruptured here at [facility] so they sent me to [facility] [place], and I saw a franchise consultant there, and he didn't know what I had either, so I got sent to [facility], where I saw a wharf laborer and got a biopsy and a diagnosis of vascular Shahana-Danlos Syndrome (vEDS), so even though I take 1600 mg of vitamin C to promote collagen synthesis, I don't have enough collagen, and it's the faulty kind, so my blood vessels still rupture and my organs bleed very very easily like planting bulbs in my garden, or the time I fell down in my yard 4 years ago, and I came to [facility] ER, and my spleen ruptured, so I flew by helicopter to [facility], and their Vascular Surgeon Dr. James Oh saved my life. I also see the Chief of Vascular Surgery at [facility], Dr. Favio Ferreira III, for my vascular Shahana-Danlos Syndrome (vEDS), but he can't do much for me, other than recommend vitamin C (to promote collagen formation) and beta blockers to keep my blood pressure low so there is less stress on my blood vessel agustin, so they don't blow out. There's a beta shi called celiprolol, that's available in [place] and many other countries for many many years now, but not here in the [place] and a lot of vascular surgeons and rheumatologists in the [place] would like to prescribe this celiprolol for their patients with vascular Shahana-Danlos Syndrome (vEDS), because it's better at preventing vascular rupture/dissection than the metoprolol or atenolol or carvedilol that we have here in the [place] Anyways, I am here in [facility] ER, today (09/28/2024), and the ER doc said that I am bleeding internally in my gut (e.g., "A focal area of mesenteric bleeding is seen in the anterior right upper quadrant, anterior to the stomach, centered around an area of prominently enhancing vessels, likely which represent the site of bleeding, otherwise without visualized active extravasation. Mild blood products extends into the right lateral mesentery, and collects in the right paracolic gutter, as well as inferiorly within the pelvis. An additional, more mild area of mesenteric bleeding can also be seen in the left upper quadrant." (as noted on 09/28/2024, 3:34pm CT abd/pelvis with IV contrast)), and I also have a big bruise just below my right armpit that just developed here in [facility] ER after I got the IV contrast for the CAT scan of my abdomen/pelvis today (09/28/2024, 3:34pm), and a CAT scan of my chest (09/28/2024, 4:13pm) confirmed that I am bleeding (e.g., "Right lateral chest wall subcutaneous hematoma with surrounding blood products." (as noted on 09/28/2024, 4:13pm CTA chest)). The ER doc asked me if I want to go to [facility] or do anything about my bleeding and I told him no. I want to stay at [facility] and be made comfortable. 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, and I am sick of fighting this vascular Shahana-Danlos Syndrome (vEDS), an autosomal dominant disease that took my dad away at 59 years of age, and his dad (my paternal grandfather) at 64 years of age, along with 2 female cousins in their early 30s, 2 uncles in their 60s, and 3 babies with premature rupture of membranes, and my 40 years old son has it too, along with a right club foot and both his iliac arteries dissected, but his aorta didn't, and my 50 years old daughter has it just as bad as her brother, and her pancreas just stopped working, I think because of the steroids she received to treat her collapsed lung recently. Vascular Shahana-Danlos Syndrome (vEDS) is rare (e.g., prevalence of 1 per 50,000 to 1 per 200,000 worldwide) and we are ze bras, rare and incurable. I do not want to be poked or prodded anymore; I just want to be comfortable. I have already made arrangements to have my body donated to [employer] for research into vascular Shahana-Danlos (vEDS), and then when they are done researching my body, my body will go to [facility] ([place], [place]). Everyone here at [facility] has been wonderful to me all these decades, and I am tired of all these ER / hospital visits. I have had enough. If you can get some Gatorade and a bed upstairs, I will be satisfied. Thank you very much, Dr. Vargas." Patient was subsequently admitted to the inpatient hospitalist service @ [facility] ER on 09/28/2024 with the following diagnoses: 1. Acute mesenteric RUQ/LUQ bleed (as noted on 09/28/2024, 3:34pm CT abd/pelvis with IV contrast). 2. Acute right lateral chest wall subcutaneous hematoma (as noted on 09/28/2024, 4:13pm CT chest with IV contrast). To address #1, and #2, patient did not want / does not want any further testing/evaluation/intervention. While patient did receive tranexamic acid 1,000mg IV x 1 dose (09/28/2024, 4:47pm) and 1 liter of 0.9% NS @ 999 mL/hr (09/28/2024, 4:24pm) in [facility] ER bed #B04B, patient did not wish / does not wish to receive anything more and has requested that patient's DNR/DNI code status @ home be revised to DNR/DNI/comfort measures only utilizing tylenol 650mg PO q6 prn pain 1-3, headache, temp > 100.4 degrees Fahrenheit and morphine 4mg IV q1 prn pain 4-10, shortness of breath, anxiety, agitation, or panic. Patient underwent formal Hospice Service evaluation in the 09/29/2024 am, and decided that she does not want to receive hospice services at home. Patient did state that she wants to be discharged home on 09/29/2024, and that she will follow up with her PCP Dr. Stormy Malone within 7 days of hospital discharge. Patient also stated that she will NOT follow up with [facility] Dr. 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 Patient also stated that she will follow up with [facility] ( ) as an outpatient to undergo evaluation. To this end, I called , and informed the secretarial staff for [facility] Dr. Roseann Dewitt that the patient had decided that she will NOT follow up with [facility] Dr. 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 I also called , and informed the secretarial staff for [facility] that the patient would like to be evaluated for radiation therapy of her left nasal fold squamous cell carcinoma; in reply, the secretarial staff for [facility] stated that they will call the patient at her mobile cell phone, , in 2 days, to arrange for outpatient evaluation for radiation therapy of her left nasal fold squamous cell carcinoma. Admission HPI Per Admitting Provider 73 years old female with PMH of DNR/DNI @ home with 2 roommates and a 13 years old service dog named Estuardo, whose only job is to alert passers-by for help, by howling incessantly upon noting patient's non-verbal state during laryngospasm(s), which frequently leads to vascular rupture and/or internal organ bleeding due to patient's underlying congenital, vascular Shahana-Danlos Syndrome (vEDS), a terminal connective tissue disorder caused by mutations in the COL3A1 gene, which encodes the alpha 1 chain of type III collagen, which is an integral/structural component of the extracellular matrix of all blood vessels and organs, and was first diagnosed in this patient @ 31 years of age when "my kidneys ruptured and no one knew why my kidneys ruptured here at [facility] so they sent me to [facility] [place], and I saw a franchise consultant there, and he didn't know what I had either, so I got sent to [facility], where I saw a wharf laborer and got a biopsy and a diagnosis of vascular Shahana-Danlos Syndrome (vEDS), so even though I take 1600 mg of vitamin C to promote collagen synthesis, I don't have enough collagen, and it's the faulty kind, so my blood vessels still rupture and my organs bleed very very easily like planting bulbs in my garden, or the time I fell down in my yard 4 years ago, and I came to [facility] ER, and my spleen ruptured, so I flew by helicopter to [facility], and their Vascular Surgeon Dr. James Oh saved my life. I also see the Chief of Vascular Surgery at [facility], Dr. Favio Ferreira III, for my vascular Shahana-Danlos Syndrome (vEDS), but he can't do much for me, other than recommend vitamin C (to promote collagen formation) and beta blockers to keep my blood pressure low so there is less stress on my blood vessel agustin, so they don't blow out. There's a beta shi called celiprolol, that's available in [place] and many other countries for many many years now, but not here in the [place] and a lot of vascular surgeons and rheumatologists in the [place] would like to prescribe this celiprolol for their patients with vascular Shahana-Danlos Syndrome (vEDS), because it's better at preventing vascular rupture/dissection than the metoprolol or atenolol or carvedilol that we have here in the [place] Anyways, I am here in [facility] ER, today (09/28/2024), and the ER doc said that I am bleeding internally in my gut (e.g., "A focal area of mesenteric bleeding is seen in the anterior right upper quadrant, anterior to the stomach, centered around an area of prominently enhancing vessels, likely which represent the site of bleeding, otherwise without visualized active extravasation. Mild blood products extends into the right lateral mesentery, and collects in the right paracolic gutter, as well as inferiorly within the pelvis. An additional, more mild area of mesenteric bleeding can also be seen in the left upper quadrant." (as noted on 09/28/2024, 3:34pm CT abd/pelvis with IV contrast)), and I also have a big bruise just below my right armpit that just developed here in [facility] ER after I got the IV contrast for the CAT scan of my abdomen/pelvis today (09/28/2024, 3:34pm), and a CAT scan of my chest (09/28/2024, 4:13pm) confirmed that I am bleeding (e.g., "Right lateral chest wall subcutaneous hematoma with surrounding blood products." (as noted on 09/28/2024, 4:13pm CTA chest)). The ER doc asked me if I want to go to [facility] or do anything about my bleeding and I told him no. I want to stay at [facility] and be made comfortable. 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, and I am sick of fighting this vascular Shahana-Danlos Syndrome (vEDS), an autosomal dominant disease that took my dad away at 59 years of age, and his dad (my paternal grandfather) at 64 years of age, along with 2 female cousins in their early 30s, 2 uncles in their 60s, and 3 babies with premature rupture of membranes, and my 40 years old son has it too, along with a right club foot and both his iliac arteries dissected, but his aorta didn't, and my 50 years old daughter has it just as bad as her brother, and her pancreas just stopped working, I think because of the steroids she received to treat her collapsed lung recently. Vascular Shahana-Danlos Syndrome (vEDS) is rare (e.g., prevalence of 1 per 50,000 to 1 per 200,000 worldwide) and we are zebras, rare and incurable. I do not want to be poked or prodded anymore; I just want to be comfortable. I have already made arrangements to have my body donated to [facility] for research into vascular Shahaan-Danlos (vEDS), and then when they are done researching my body, my body will go to [facility] ([place], [place]). Everyone here at [facility] has been wonderful to me all these decades, and I am tired of all these ER / hospital visits. I have had enough. If you can get some Gatorade and a bed upstairs, I will be satisfied. Thank you very much, Dr. Vargas." Patient denies antecedent/coincident fevers, chills, diaphoresis, shortness of breath, dyspnea on exertion, cough, wheeze, sore throat, hemoptysis, chest pains, palpitations, pleurisy, nausea, vomiting, diarrhea, pelvic pain, flank pain, back pain, shoulder pain, hematemesis, hematochezia, melena, hematuria, dysuria, frequency, urgency, headaches, dizziness, lightheadedness, visual changes, hearing changes, weakness, falls, syncope, travel history, sick contacts, food/drug ingestions novel or new, anosmia, ageusia, hypogeusia, myalgias, arthralgias, rhinorrhea, or otorrhea. All other review of systems are reported as negative by the patient on admission date 09/28/2024. In [facility] ER bed #B04B, patient was afebrile @ 36.9 degrees Celsius, HR 83, RR 18, O2 sat 96% on room air, and BP 163/92 (09/28/2024, 3:01pm). Exam was noted for a right lateral infra-axillary, chest wall hematoma with induration and slight tenderness, which the patient reported was not present when patient arrived at [facility] ER (09/28/2024, 3:01pm). The remainder of patient's exam was unremarkable. Labs in [facility] ER bed #B04B included: WBC 5.80, N69 L22 M6 E2 B1, Hb 13.7, MCV 85.0, MCHC 34.4, platelet 225 (09/28/2024, 3:00pm). INR 1.0 (09/28/2024, 3:00pm). Na 137, K 3.9, BUN 15, creatinine 0.74, glucose 148, Ca 9.5, AST 25, ALT 21, ALK PHOS 77, TBili 0.4 (09/28/2024, 3:00pm). U/A: clear yellow, trace blood, RBC 0-2, LE-, nitrite-, WBC 0-5, epithelial cells 0-2, bacteria 0 (09/28/2024, 4:25pm). Additional testing in [facility] ER bed #[id number] included: CT abd/pelvis with IV contrast (09/28/2024, 3:34pm): 1. A focal area of mesenteric bleeding is seen in the anterior right upper quadrant, anterior to the stomach, centered around an area of prominently enhancing vessels, likely which represent the site of bleeding, otherwise without visualized active extravasation. Mild blood products extends into the right lateral mesentery, and collects in the right paracolic gutter, as well as inferiorly within the pelvis. 2. An additional, more mild area of mesenteric bleeding can also be seen in the left upper quadrant. 3. 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 CT chest with IV contrast (09/28/2024, 4:13pm): 1. Right lateral chest wall subcutaneous hematoma with surrounding blood products. Patient was subsequently admitted to the inpatient hospitalist service @ [facility] ER on 09/28/2024 with the following diagnoses: 1. Acute mesenteric RUQ/LUQ bleed (as noted on 09/28/2024, 3:34pm CT abd/pelvis with IV contrast). 2. Acute right lateral chest wall subcutaneous hematoma (as noted on 09/28/2024, 4:13pm CT chest with IV contrast). To address #1, and #2, patient does not want any further testing/evaluation/intervention. While patient did receive tranexamic acid 1,000mg IV x 1 dose (09/28/2024, 4:47pm) and 1 liter of 0.9% NS @ 999 mL/hr (09/28/2024, 4:24pm) in [facility] ER bed #B04B, patient does not wish to receive anything more and has requested that patient's DNR/DNI code status @ home be revised to DNR/DNI/comfort measures only utilizing tylenol 650mg PO q6 prn pain 1-3, headache, temp > 100.4 degrees Fahrenheit and morphine 4mg IV q1 prn pain 4-10, shortness of breath, anxiety, agitation, or panic. Patient awaits formal Hospice Service evaluation in the 09/29/2024 am to expedite hospital disposition while patient remains in [facility]. Discharge Exam Constitutional General: Comfortable, coherent, cooperative. Wide awake and alert. Not confused, lethargic, or obtunded. Patient speaks in complete, fluent, and articulate sentences without pause, cough, or wheeze, with O2 sat 96% on room air (09/29/2024, 7:54am). HEENT: Normocephalic, atraumatic. Extra-ocular muscles intact. Pupils equally round and reactive to light. No nystagmus, gaze paresis, anisocoria, miosis, mydriasis, hyphema, scleral injection, conjunctivitis, or pterygium. No otorrhea or rhinorrhea. No pharyngeal erythema, edema, or discharge. Neck: Supple, no stridor, bruit, goiter, or hepato-jugular reflux. Jugular venous pressure is estimated to be 3 cm above the sternal angle of [place], which in turn, is 5 cm above the level of the right atrium; with jugular venous pressure estimated to be 8 cm, then, there is no jugular venous distention on 09/28/2024. Lymphatics: No cervical (anterior/posterior), supraclavicular, infraclavicular, axillary, epitrochlear, or inguinal adenopathy. Chest: Symmetric rise and fall with respirations. Non-tender to palpation. Lungs: Clear to auscultation and percussion. No audible expiratory wheeze, egophony, pectoriloquy, increase in tactile fremitus, or flatness/dullness to percussion at the bases. Heart: Regular rate and rhythm. S1 and S2 noted. No S3 or S4 summation gallop. No tripartite friction rub. Grade II/ early systolic murmur @ LLSB without radiation to the carotids, axilla, or back, and which remains invariant in regards to the respiratory cycle. Abdomen: Soft, non-tender, non-distended. No rebound, guarding, Benitez's sign, or organomegaly. Bowel sounds auscultated in all 4 quadrants. Extremities: No clubbing, cyanosis. 2+ pedal pulses bilaterally. Skin: No decubitus ulcer or enanthem. Skin: Right lateral infra-axillary, chest wall hematoma with induration and slight tenderness, which the patient reported was not present when patient arrived at [facility] ER (09/28/2024, 3:01pm), and which has extended to involve the right frontal chest wall, not crossing the mid-sternal region on 09/29/2024, 7:21am. Genito-urinary: No urethral discharge. No mayen catheter. Neurology: Alert and oriented in regards to person, place, time, and situation. DTR+ and symmetric. 5/5 motor strength in all 4 extremities, both proximally and distally. No pronator drift. No facial droop. No dysarthria. Psychiatry: No homicidal ideation. No suicidal ideation. No flat affect; smiles appropriately Discharge Plan Discharge Items Patient Disposition: Home - Self-Care Reason For Visit: ACUTE MESENTERIC HEMORRHAGE Discharge Diagnosis: Acute mesenteric hemorrhage Condition on Discharge: Fair Activity: Resume your previous activity Lifting: Gradually increase as tolerated Bathing: No limitations Sexual Activity: When tolerated Exercise/Sports: Gradually increase as tolerated Driving/Machine Use: No limitations Weightbearing: Full weightbearing Non-emergency contact: Primary Care Provider Call non-emergency contact if: you have any medication questions Follow-up/Referrals: Stormy Malone [Primary Care Provider] - Diet: Heart Healthy Addtl Attending Provider Instructions: You will receive a phone call from [facility] ( ) in 2 days to arrange for outpatient radiation therapy to treat your left nasal fold squamous cell carcinoma, as surgical resection of your left nasal fold squamous cell carcinoma with [facility] Dr. Roseann Dewitt can be complicated by uncontrolled bleeding. Pending Studies at Discharge: No Stand-Alone Forms: My [facility], Smoking Cessation Skilled Items Patient informed of condition?: Yes DNR: Yes Discharge Level of Care: Other Communicable Disease: No Discharge Prognosis: Stable Lines: None Urinary Catheter: No Medications and DC Order Prescriptions: Continued atenolol 50 mg tablet 150 mg PO DAILY tramadol 50 mg tablet 50 mg PO BID PRN (Reason: Pain) Rx Instructions: PER PT "TAKE USUALLY BID". multivitamin Tablet 1 tab PO DAILY Rx Instructions: mini tabs Vitamin C 1,000 mg Tablet Extended Release 2,000 mg PO DAILY magnesium 200 mg Tablet 200 mg PO DAILY cholecalciferol (vitamin D3) [Vitamin D3] 50 mcg (2,000 unit) Capsule 50 mcg PO DAILY Discontinued diclofenac sodium 1 % gel 2 g topical QID PRN (Reason: JOINT PAIN) Discharge Orders: Discharge Order (Routine); Ordered 09/29/24 Ordered By: Idris Boston/Other Patient Handouts: Understanding DNR Orders Admission Data Admit Date/Time: 09/28/24 17:24 Attending Provider: Idris Vallejo Admit Provider: Idris Vallejo Primary Care Provider: Stormy Malone Other Providers: Monica Fan Other Interventions: Discharge Summary Assessment (RN) Last Done: 09/29/24 11:27 Hospital Stay Data Consultations 09/29/24 07:31 Consult Palliative Care Routine 09/29/24 08:31 Burn CD for patient Stat Diagnostic Imagining Performed 09/28/24 15:34 CT Abd and Pelvis [CT abd pelvis IV con only] Stat 09/28/24 16:13 CT chest diagnostic wo con Stat Pending Results Patient Have Any Pending Studies at Discharge: No Discharge Instructions Given to Patient (Per Discharging Provider) You will receive a phone call from [facility] ( ) in 2 days to arrange for outpatient radiation therapy to treat your left nasal fold squamous cell carcinoma, as surgical resection of your left nasal fold squamous cell carcinoma with [facility] Dr. Roseann Dewitt can be complicated by uncontrolled bleeding. Total Time Total Time Spent Total Time Spent (In Minutes): 36 minutes. Of this time period, 19 minutes were spent in coordinating patient's discharge. Coding Level of Care Code 95958 INP/OBS DISCH >30 MIN Diagnoses Mesenteric bleeding K66.1 Chest wall hematoma S20.219A DNR (do not resuscitate) Z66
--- NOTE | 2024-09-29 12:37 | Electrocardiogram Report ---
Test Reason : Blood Pressure : */* mmHG Vent. Rate : 74 BPM Atrial Rate : 74 BPM P-R Int : 188 ms QRS Dur : 50 ms QT Int : 390 ms P-R-T Axes : 50 -33 29 degrees QTcB Int : 432 ms Normal sinus rhythm Left axis deviation Low voltage QRS Inferior infarct (cited on or before 31-Jul-2015) Cannot rule out Anteroseptal infarct (cited on or before 22-Oct-2013) Abnormal ECG When compared with ECG of 24-Nov-2022 12:56, Questionable change in initial forces of Inferior leads Confirmed by Favio Brumfield ([id number]) on 09/29/2024 12:37:46 PM Referred By: REFERRED SELF Confirmed By: Favio Brumfield
== END 2024-09-29 16:28 | disposition home or self-care (01) | DRG 394 ==
LOC: ED 14:51 → 3E 17:24